=== PATIENT | male | born 1975 | race Caucasian/White ===

== ENCOUNTER 2016-10-31 04:00 | Inpatient (IN) | payer SELFPAY ==
--- NOTE | 2016-10-31 04:19 | PDOC ---
History of Present Illness - General History Source: Patient Exam Limitations: No Limitations - History of Present Illness Initial Comments: 10/31/16 04:49 The patient is a 41 year old male, with significant past medical history of obesity, HTN, who presents today complaining of SOB, diaphoresis x2 days. The patient states that he the SOB is exacerbated when laying down and sleeping. He states that he wakes up every night because he can't breathe and feels like he is choking. The patient woke up tonight because he had difficulty breathing and called the ambulance. He notes that his legs frequently feel numb. Denies cough. Denies fever, chills, nausea, vomiting. Allergies: none reported Social Hx: Tobacco use. Marijuana use. Daily alcohol use (multiple beers after work). The patient does not have a PCP. <Evonne Zimmerman - Last Filed: 10/31/16 04:49> <Denisha Nair - Last Filed: 11/01/16 05:21> - General Chief Complaint: Pain, Acute Stated Complaint: ABDOMINAL PAIN Time Seen by Provider: 10/31/16 04:11 Past History <Evonne Zimmerman - Last Filed: 10/31/16 04:49> - Psycho/Social/Smoking Cessation Hx Suicidal Ideation: No Smoking History: Unknown if ever smoked Hx Alcohol Use: No Drug/Substance Use Hx: No <Denisha Nair - Last Filed: 11/01/16 05:21> - Past Medical History Allergies/Adverse Reactions: Allergies Allergy/AdvReac Type Severity Reaction Status Date / Time No Known Allergies Allergy Verified 10/31/16 04:11 Home Medications: Ambulatory Orders NK [No Known Home Medication] 10/31/16 Review of Systems - Review of Systems Able to Perform ROS?: Yes Comments:: 10/31/16 04:49 GENERAL/CONSTITUTIONAL: +diaphoresis. No fever or chills. No weakness. HEAD, EYES, EARS, NOSE AND THROAT: No change in vision. No ear pain or discharge. No sore throat. CARDIOVASCULAR: No chest pain. RESPIRATORY: +SOB. No cough, wheezing, or hemoptysis. GASTROINTESTINAL: No nausea, vomiting, diarrhea or constipation. GENITOURINARY: No dysuria, frequency, or change in urination. MUSCULOSKELETAL: No joint or muscle swelling or pain. No neck or back pain. SKIN: No rash NEUROLOGIC: No headache, vertigo, loss of consciousness, or change in strength/ sensation. ENDOCRINE: No increased thirst. No abnormal weight change. HEMATOLOGIC/LYMPHATIC: No anemia, easy bleeding, or history of blood clots. ALLERGIC/IMMUNOLOGIC: No hives or skin allergy. <JaniceciciEvonne - Last Filed: 10/31/16 04:49> *Physical Exam - Vital Signs Last Vital Signs Temp Pulse Resp BP Pulse Ox 122 H 22 144/90 91 L 10/31/16 04:12 10/31/16 04:12 10/31/16 04:12 10/31/16 04:12 - Physical Exam Comments: 10/31/16 04:50 GENERAL: Awake, alert, and fully oriented,extremely diaphoretic. Extremely obese. HEAD: No signs of trauma EYES: PERRLA, EOMI, sclera anicteric, conjunctiva clear ENT: Auricles normal inspection, hearing grossly normal, nares patent, oropharynx clear without exudates. Moist mucosa NECK: Normal ROM, supple, no lymphadenopathy, JVD, or masses LUNGS: +Hypoxic. Breath sounds equal, clear to auscultation bilaterally. No wheezes, and no crackles HEART: Regular rate and rhythm, normal S1 and S2, no murmurs, rubs or gallops ABDOMEN: Soft, nontender, normoactive bowel sounds. No guarding, no rebound. No masses EXTREMITIES: 3+ pitting edema bilaterally. Normal range of motion. No clubbing or cyanosis. No cords, erythema, or tenderness NEUROLOGICAL: Cranial nerves II through XII grossly intact. Normal speech, normal gait SKIN: Warm, Dry, normal turgor, no rashes or lesions noted. <JaniceciciEvonne - Last Filed: 10/31/16 04:49> - Vital Signs Last Vital Signs Temp Pulse Resp BP Pulse Ox 122 H 22 144/90 91 L 10/31/16 04:12 10/31/16 04:12 10/31/16 04:12 10/31/16 04:12 <Denisha Nair - Last Filed: 11/01/16 05:21> ED Treatment Course - LABORATORY CBC & Chemistry Diagram: 10/31/16 04:50 10/31/16 04:50 <Denisha Nair - Last Filed: 11/01/16 05:21> Medical Decision Making - Medical Decision Making 10/31/16 06:06 Pt has exrteme obesity and inability to breathe. Pt has diaphoresis that incorporates his entire body as he is in distress with his morbid obesity. EKG is NSR and lungs are clear despite cardiomegaly. Pt drinks alcohol daily - multiple beers and he smokes cigarettes and pot. States that he keeps gaining weight. He has swelling of his legs and will require DVT ruleout. He needs thyroid testing. He needs BiPAP to breathe easily Pt will need med surg admission. He has not been to the doctor in years, so he will be admitted to the hospitalist for further workup. 11/01/16 05:20 Pt signed out to day attending, who will endorse to the day hospitalist, as the night hospitalist didn't take the patient, as they are busy. <Denisha Nair - Last Filed: 11/01/16 05:21> *DC/Admit/Observation/Transfer - Attestations Scribe Attestion: 10/31/16 04:51 Documentation prepared by RACHEL Villa, acting as medical observer for Denisha Nair MD. <Evonne Zimmerman - Last Filed: 10/31/16 04:49> - Discharge Dispostion Admit: Yes <Denisha Nair - Last Filed: 11/01/16 05:21> Diagnosis at time of Disposition: Respiratory distress, Diaphoresis, Obesities, morbid, Sleep apnea, Alcohol dependence - Discharge Dispostion Condition at time of disposition: Guarded
[2016-10-31 05:14] LABS: BASOPHIL 0.8 % (0-2.0); EOSINOPHIL 2.2 % (0-4.5); MCH 32.9 pg (25.7-33.7); MCHC 36.8 g/dl (32.0-35.9); MEAN CELL VOLUME 89.5 fl (80-96); MEAN PLT VOLUME 9.8 fl (7.5-11.1); NEUTROPHILS 69.8 % (42.8-82.8); PLATELET COUNT 212 K/MM3 (134-434); RDW 13.9 % (11.9-15.9); WHITE BLOOD COUNT 6.7 K/mm3 (4.0-10.0)
[2016-10-31] MEDS ORDERED: FUROSEMIDE 40 MG/4 ML INJECTABLE VIAL ONE (05:15)
[2016-10-31 05:37] LABS: ALBUMIN 3.8 g/dl (3.4-5.0); ANION GAP 6 (8-16); BILIRUBIN,TOTAL 0.7 mg/dL (0.2-1.0); CO2 35 mmol/L (21-32)
[2016-10-31 05:55] LABS: GLUCOSE,RANDOM 187 mg/dL (74-106)
[2016-10-31 05:56] LABS: CREATININE 1.1 mg/dL (0.7-1.3)
[2016-10-31 05:57] LABS: ALK PHOS 74 U/L (45-117); CALCIUM 7.8 mg/dL (8.5-10.1); TOT PROT 7.6 g/dl (6.4-8.2)
[2016-10-31 06:00] LABS: TROPONIN I < 0.02 ng/ml (0.00-0.05)
[2016-10-31 06:29] LABS: SGOT/AST 85 U/L (15-37); SGPT/ALT 120 U/L (12-78)
--- NOTE | 2016-10-31 08:38 | HP ---
CHIEF COMPLAINT: " Left upper quadrant pain and sob" PCP: No PCP (Hasn't seen any physician since 10 years) HISTORY OF PRESENT ILLNESS: Patient is a 41 year old male with past medical history of Morbid obesity presented to the ED via EMS with the chief complaints of Left upper quadrant pain x 2 days. As per the patient, he was apparently well until 2 days ago when he started having left upper quadrant pain, ripping in nature, 8/10 in intensity , non radiating, not associated with nausea but one episode of vomiting. Vomitus was non bloody, non bilious, non projectile. Abdominal pain was unbearable, he felt something ripping out from the the LUQ, hence called 911 immediately and came here. Patient also reports to have dry cough, on /off since 4 years. Has shortness of breath on/off limiting him to walk beyond a block, needs to take rest after which he is able to walk. Has a h/o PND and orthopnea, chokes at night, has to wake up every hour because of shortness of breath, snores at night. After he gets up in the morning, gets very tired, feels sleepy during the day, feels sleepy while driving, doesn't get morning headaches. He reports that he has been trying to loose weight, tried by changing the diet but feels he has been gaining weight over the past years. Patient says that he has been told by his friends that he may have sleep apnea and Hypertension but hasn't visited a physician since 10 years. Denies chest pain, palpitation, headache, dizziness, fever, chills, rigors or sweating. No h/o travel, no h/o immobilization. Bowel/Bladder habit normal. Sleep-disturbed. Appetite normal. ER course was notable for: (1) Afebrile, Hypertensive (144/90mmHg), Hypoxia 91 % in RA (2) CXR- Bibasilar changes, blunting of the right angle (3) IV Lasix 80mg Daily; CPAP Recent Travel: None . Came from [place] in 2004 PAST MEDICAL HISTORY: Morbid Obesity, thinks he has Sleep apnea and Hypertension but never been diagnosed. PAST SURGICAL HISTORY: None Social History: Smokin Pack/day since 14 years Alcohol:12 cans of beers/day since 14 years Drugs: Marijuana since 14 years, 1-2 joints/day Family History: None Allergies No Known Allergies Allergy (Verified 10/31/16 04:11) HOME MEDICATIONS: Doesn't take any medication at home. Home Medications Medication Instructions Recorded NK [No Known Home Medication] 10/31/16 REVIEW OF SYSTEMS CONSTITUTIONAL: Present: Weight gain over the past years Absent: fever, chills, diaphoresis, generalized weakness, malaise, loss of appetite, weight change HEENT: Absent: rhinorrhea, nasal congestion, throat pain, throat swelling, difficulty swallowing, mouth swelling, ear pain, eye pain, visual changes CARDIOVASCULAR: Absent: chest pain, syncope, palpitations, irregular heart rate, lightheadedness , peripheral edema RESPIRATORY: Present: cough, shortness of breath, dyspnea with exertion, orthopnea, Absent: wheezing, stridor, hemoptysis GASTROINTESTINAL: Present: abdominal pain,vomiting, Absent: abdominal distension, nausea, diarrhea, constipation, melena, hematochezia GENITOURINARY: Absent: dysuria, frequency, urgency, hesitancy, hematuria, flank pain, genital pain MUSCULOSKELETAL: Absent: myalgia, arthralgia, joint swelling, back pain, neck pain SKIN: Absent: rash, itching, pallor HEMATOLOGIC/IMMUNOLOGIC: Absent: easy bleeding, easy bruising, lymphadenopathy, frequent infections ENDOCRINE: Absent: unexplained weight gain, unexplained weight loss, heat intolerance, cold intolerance NEUROLOGIC: Absent: headache, focal weakness or paresthesias, dizziness, unsteady gait, seizure, mental status changes, bladder or bowel incontinence PSYCHIATRIC: Absent: anxiety, depression, suicidal or homicidal ideation, hallucinations. PHYSICAL EXAMINATION GENERAL: Morbidly obese male, lying in bed, Awake, alert, and fully oriented, in mild respiratory distress, on CPAP. HEAD: Normal with no signs of trauma. EYES: EOM intact, no pallor or icterus. EARS, NOSE, THROAT: Ears normal. Moist mucous membranes. NECK: Short neck, Normal range of motion,Supple, no JVD. LUNGS: B/L decreased breath sounds in the bases, clear to auscultation bilaterally. No wheezes, and no crackles. No accessory muscle use. HEART: Tachycardic, Regular rate and rhythm, normal S1 and S2 without murmur. ABDOMEN: Tense + distended + (patient mentions its normally tense and distended) ,tenderness in the left upper quadrant, normoactive bowel sounds, no guarding, no rebound, no masses. No hepatomegaly or splenomegaly. MUSCULOSKELETAL: Normal range of motion at all joints. No bony deformities or tenderness. No CVA tenderness. UPPER EXTREMITIES: 2+ pulses, warm, well-perfused. No cyanosis. No clubbing. No peripheral edema. LOWER EXTREMITIES: 2+ pulses, warm, well-perfused. No calf tenderness. No peripheral edema. NEUROLOGICAL: No facial droop, bulk/tone-normal, power- 5/5 in all extremities , reflexes-intact, Cranial nerves II-XII intact. Normal speech. Normal gait. PSYCHIATRIC: Cooperative. Good eye contact. Appropriate mood and affect. SKIN: Warm, dry, normal turgor, no rashes or lesions noted, normal capillary refill. Chest x-ray 10/31/2016: AP and lateral views reveal degenerative changes with wedging, clear lungs, large heart, unfolded aorta and normal rosemary. There may be some minimal atelectasis at the left costophrenic angle. A discrete infiltrate is not seen. There is slight blunting of the right angle. Soft tissues appear prominent. Correlation recommended. Impression: Basilar changes. ASSESSMENT/PLAN: Patient is a 41 year old male with past medical history of Morbid obesity presented to the ED via EMS with the chief complaints of Left upper quadrant pain x 2 days and SOB admitted for evaluation of shortness of breath and left upper quadrant pain # Acute SOB/cough -rule out Pulmonary Embolism C/O sob at rest and exertion,Left Upper Quadrant abd pain, EKG-Sinus tachycardia; Morbidly obese Wells score for PE- 6 ABG: Hypoxia,respiratory acidosis with metabolic alkalosis CTPA ordered Ulikely Pneumonia- Afebrile, lungs clear on auscultation, no leukocytosis, CXR- Blunting of right angle, basilar changes, will Do CT chest anyway Admitted in Med-Surg, will transfere to tele if clinical condition worsens Unlikely ACS- Troponin-negative, will trend Echo ordered for aM Pulmonary consult # Left upper Abdominal pain with vomiting vs Acute Gastritis vs GERD Rule out Pancreatitis-Given the h/o alcohol intake since 14 years; Chronic dry cough-could be due to GERD amylase pending; lipase 187 Lipid panel-High TG~800 CT abdomen with IV/PO contrast ordered Avoid hepatotoxic drugs Protonix 40mg Daily # ? 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 Schroeder consult # Elevated Liver Enzymes likey due to Alcohol/NAFLD/WHEELER R/O Viral hepatitis Viral hepatitis panel ordered Avoid hepatotoxic drugs CT abdomen/pelvis pending # Newly diagnosed Hyperlipidemia T; T. Cholesterol 260; LDL 113; HDL 41 Gemfibrozil 600mg PO BID, will monitor CK Fish oil 2gm PO BID Low Pressure Boiler Operator consult requested. # Mild Rhabdomyolysis CK- 1118; No h.o recent fall, no recent drug use. Continue IV Fluids # Prediabetic [id number] Diet and exercise counseling # Morbidly Obese BMI- 50.9 Diet and weight counseling Dr. Schroeder consult request # Substance abuse Smoking, marijuana and alcohol cessation counseling Nicotine patch ordered Watch for alcohol withdrawal symptoms. Urine toxicology ordered. # FEN IV NS @ 83mls/hr Electrolytes -normal, to be repeated in am Fat/Carb/Chol controlled diet # Prophylaxis For DVT- on Heparin 5000 sq TID For GI- Not indicated # Code Status- Full Code # Dispo: Admitted in Med-Surg. Duration of stay unknown. Illness, Investigation and Plan of care explained to the patient. He verbalized understanding. Case discussed with Dr. York Visit type - Emergency Visit Emergency Visit: Yes ED Registration Date: 10/31/16 Care time: The patient presented to the Emergency Department on the above date and was hospitalized for further evaluation of their emergent condition. - New Patient This patient is new to me today: Yes Date on this admission: 10/31/16 - Critical Care Critical Care patient: No
[2016-10-31 08:42] LABS: ALLENS TEST POSITIVE; ART PUNCT SITE RIGHT RADIAL; ARTERIAL BLD GAS O2 SATURATION 90.6 % (90-98.9); ARTERIAL BLOOD GAS HCO3 28.9 meq/L (22-26)
[2016-10-31 08:43] LABS: ARTERIAL BLOOD GAS PO2 67.3 mmHg (80-100); ARTERIAL BLOOD GAS pH 7.33 (7.35-7.45); LPM/O2% 21%; PT. ON O2? NO; TYPE OF O2 ROOM AIR
[2016-10-31] MEDS: SODIUM CHLORIDE 1,000 ML IV SCH ×2 (09:44→22:02)
[2016-10-31] MEDS: FUROSEMIDE 40 MG/4 ML INJECTABLE VIAL IVPB SCH (09:49)
[2016-10-31] MEDS: HEPARIN NA (PORCINE) 5,000 UNITS/ML 1ML VIAL SQ SCH ×3 (09:52→22:00)
[2016-10-31] MEDS: NICOTINE 14 MG/24 HOURS TOPICAL PATCH TD SCH (09:54)
[2016-10-31] MEDS ORDERED: ALBUTEROL SO4 0.083% IH SOL 2.5 MG/3 ML VIAL.NEB. NEB PRN (09:56)
[2016-10-31 10:04] LABS: PHOSPHOROUS 6.1 mg/dL (2.5-4.9)
[2016-10-31 10:06] LABS: MAGNESIUM 2.6 mg/dL (1.8-2.4)
[2016-10-31 10:13] LABS: CHOLESTEROL 260 mg/dL (50-200); LDL CHOLESTEROL (ONLY SJRH) 113 mg/dL (5-100)
[2016-10-31 10:42] LABS: AMYLASE 46 U/L (25-115)
[2016-10-31 10:43] LABS: TROPONIN I < 0.02 ng/ml (0.00-0.05)
--- NOTE | 2016-10-31 11:12 | CON.PULM ---
Consult Consult Specialty:: PULMONARY Referred by:: Hospitalist Reason for Consultation:: sleep apnea - History of Present Illness Chief Complaint: shortness of breath History of Present Illness: 41yo male with h/o HTN, morbid obesity who was admitted with shortness of breath and diaphoresis. States he is a loud snorer and has been told of witnessed apneas. He wakes up multiple times throughout the night gasping for breaths and choking. 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 He is a 1 PPD smoker as well. - History Source History Provided By: Patient, Medical Record Limitations to Obtaining History: No Limitations - Past Medical History Cardio/Vascular: Yes: HTN - Alcohol/Substance Use Hx Alcohol Use: No - Smoking History Smoking history: Unknown if ever smoked Home Medications - Allergies Allergies/Adverse Reactions: Allergies Allergy/AdvReac Type Severity Reaction Status Date / Time No Known Allergies Allergy Verified 10/31/16 04:11 - Home Medications Home Medications: Ambulatory Orders NK [No Known Home Medication] 10/31/16 Review of Systems - Review of Systems Constitutional: denies: Chills, Fever Eyes: denies: Recent Change in Vision HENT: denies: Nasal Congestion, Throat Pain Neck: denies: Stiffness, Tenderness Cardiovascular: reports: Shortness of Breath. denies: Chest Pain Respiratory: denies: Cough, Hemoptysis, Wheezing Gastrointestinal: denies: Abdominal Pain, Nausea, Vomiting Genitourinary: denies: Dysuria, Hematuria Neurological: reports: Headache. denies: Dizziness Endocrine: denies: Unexplained Weight Gain, Unexplained Weight Loss Physical Exam Vital Sings: Vital Signs Temperature Pulse Rate 122 H 10/31/16 04:12 Respiratory Rate 22 10/31/16 04:12 Blood Pressure 144/90 10/31/16 04:12 O2 Sat by Pulse Oximetry (%) 98 10/31/16 10:04 Constitutional: Yes: Calm, Other (falls asleep easily) Eyes: Yes: Conjunctiva Clear, EOM Intact HENT: Yes: Atraumatic, Normocephalic Neck: Yes: Supple, Trachea Midline Cardiovascular: Yes: Regular Rate and Rhythm Respiratory: Yes: Regular, Diminished (distant breath sounds) ...Clubbing: No Gastrointestinal: Yes: Normal Bowel Sounds, Soft, Abdomen, Obese. No: Tenderness Edema: Yes (trace) Labs: ABG Results ABG pH 7.33 (7.35-7.45) L 10/31/16 08:39 ABG pCO2 at Pt Temp 56.9 mmHg (35-45) H 10/31/16 08:39 ABG pO2 at Pt Temp 67.3 mmHg (80-100) L 10/31/16 08:39 ABG HCO3 28.9 meq/L (22-26) H 10/31/16 08:39 ABG O2 Sat (Measured) 90.6 % (90-98.9) 10/31/16 08:39 ABG O2 Content 18.8 % vol (15-22) 10/31/16 08:39 ABG Base Excess 2.0 meq/l (-2-2) 10/31/16 08:39 Imaging - Results Chest X-ray: Report Reviewed, Image Reviewed (poor film, ?basilar atelectasis) Problem List - Problems (1) Acute and chronic respiratory failure with hypercapnia Code(s): J96.22 - ACUTE AND CHRONIC RESPIRATORY FAILURE WITH HYPERCAPNIA (2) Sleep apnea Code(s): G47.30 - SLEEP APNEA, UNSPECIFIED (3) Obesities, morbid Code(s): E66.01 - MORBID (SEVERE) OBESITY DUE TO EXCESS CALORIES (4) Smoker Code(s): F17.200 - NICOTINE DEPENDENCE, UNSPECIFIED, UNCOMPLICATED Assessment/Plan Acute on Chronic Hypercapneic Respiratory failure Likely Obstructive Sleep Apnea/Obesity Hypoventilation Syndrome Morbid Obesity Smoker - adjusted BiPAP settings to 12/8 with 40% FiO2 - taper FiO2 to maintain SpO2 >90% - will need sleep study as outpt and PAP device - smoking cessation, weight loss - DVT prophylaxis Thank you for this consult Jesus Duran MD
[2016-10-31 12:47] LABS: URINE MARIJUANA THC POSITIVE ng/ml (CUTOFF=50)
[2016-10-31 14:44] VITALS: BMI 46.3
[2016-10-31] MEDS ORDERED: PNEUMOC 13-VAL CONJ-DIP CRM/PF 0.5 ML DISP.SYRIN IM ONE (14:51)
--- NOTE | 2016-10-31 17:05 | PN ---
Teaching Attending Note Name of Resident: Yaa Martínez ATTENDING PHYSICIAN STATEMENT I saw and evaluated the patient. I reviewed the resident's note and discussed the case with the resident. I agree with the resident's findings and plan as documented. SUBJECTIVE: RAMOS with hypoxia OBJECTIVE: Vital Signs Temperature 99.2 F 10/31/16 13:29 Pulse Rate 116 H 10/31/16 13:29 Respiratory Rate 21 10/31/16 13:29 Blood Pressure 139/88 10/31/16 13:29 O2 Sat by Pulse Oximetry (%) 97 10/31/16 14:49 CBCD WBC 6.7 K/mm3 (4.0-10.0) 10/31/16 04:50 RBC 4.67 M/mm3 (4.00-5.60) 10/31/16 04:50 Hgb 15.4 GM/dL (11.7-16.9) 10/31/16 04:50 Hct 41.8 % (35.4-49) 10/31/16 04:50 MCV 89.5 fl (80-96) 10/31/16 04:50 MCHC 36.8 g/dl (32.0-35.9) H 10/31/16 04:50 RDW 13.9 % (11.9-15.9) 10/31/16 04:50 Plt Count 212 K/MM3 (134-434) 10/31/16 04:50 MPV 9.8 fl (7.5-11.1) 10/31/16 04:50 CMP Sodium 137 mmol/L (136-145) 10/31/16 04:50 Potassium 5.1 mmol/L (3.5-5.1) 10/31/16 04:50 Chloride 96 mmol/L (98-107) L 10/31/16 04:50 Carbon Dioxide 35 mmol/L (21-32) H 10/31/16 04:50 Anion Gap 6 (8-16) L 10/31/16 04:50 BUN 24 mg/dL (7-18) H 10/31/16 04:50 Creatinine 1.1 mg/dL (0.7-1.3) 10/31/16 04:50 Creat Clearance w eGFR > 60 (>60) 10/31/16 04:50 Random Glucose 187 mg/dL (74-106) H 10/31/16 04:50 Calcium 7.8 mg/dL (8.5-10.1) L 10/31/16 04:50 Total Bilirubin 0.7 mg/dL (0.2-1.0) 10/31/16 04:50 AST 85 U/L (15-37) H 10/31/16 04:50 ALT 120 U/L (12-78) H 10/31/16 04:50 Alkaline Phosphatase 74 U/L (45-117) 10/31/16 04:50 Total Protein 7.6 g/dl (6.4-8.2) 10/31/16 04:50 Albumin 3.8 g/dl (3.4-5.0) 10/31/16 04:50 CARDIAC ENZYMES Creatine Kinase 1118 IU/L (39-308) H 10/31/16 04:50 Troponin I < 0.02 ng/ml (0.00-0.05) 10/31/16 09:20 Current Medications Generic Name Dose Route Start Last Admin Trade Name Chelsea PRN Reason Stop Dose Admin Albuterol Sulfate 1 amp 10/31/16 09:56 Ventolin 0.083% Nebulizer Soln - NEB Q6H PRN SHORT OF BREATH/WHEEZING Furosemide 80 mg 10/31/16 10:00 10/31/16 09:49 Lasix Injection - IVPB 80 mg DAILY JUAN Administration Gemfibrozil 600 mg 10/31/16 16:30 Lopid - PO BID@0700,1630 JUAN Heparin Sodium (Porcine) 5,000 unit 10/31/16 09:00 10/31/16 15:31 Heparin - SQ 5,000 unit TID JUAN Administration Sodium Chloride 1,000 mls @ 83 mls/hr 10/31/16 09:30 10/31/16 09:44 Normal Saline - IV 83 mls/hr ASDIR JUAN Administration Nicotine 14 mg 10/31/16 10:00 10/31/16 09:54 Nicoderm Patch - TD 14 mg DAILY JUAN Administration Qardv-2-Szyj Ethyl Esters 2 gm 10/31/16 22:00 Lovaza - PO BID JUAN Home Medications Medication Instructions Recorded NK [No Known Home Medication] 10/31/16 Pe: per resident's note Morbid obesity ASSESSMENT AND PLAN: Patient is a 41 year old male with past medical history of Morbid obesity presented to the ED via EMS with the chief complaints of Left upper quadrant pain x 2 days and SOB admitted for evaluation of shortness of breath and left upper quadrant pain # Acute SOB due to Obesity Hypoventilation Syndrome/ sleep apnea rule out Pulmonary Embolism. # Abdominal pain r/o Pancreatitis-Given the h/o alcohol intake since 14 years; amylase 64; lipase 187, Elevated liver enzymes CT abdomen with IV/PO contrast ordered, LFT ordered follow the levels , with lipid profile T; T. Cholesterol 260; LDL 113; HDL 41 # Hyperlipidemia; Cannot give Lipitor at this time since elevated CPK total level, will worsen ; T; T. Cholesterol 260; LDL 113; HDL 41, Gemfibrozil 600mg PO BID ; Fish oil 2gm PO BID ; Geophysical Laboratory Director consult requested. # ELevated CPK with Acute Rhabdomyelis ;on IVF with CK- 1118 trend the level ; Continue IV Fluids. Ua for hemoglobin # Prediabetic ;[id number]; Diet and exercise counseling Ct abd/pelvis is pending # Morbidly Obese ; BMI 50.9 ;Diet and weight counseling ;further management as an outpatient # Substance abuse ;Smoking, marijuana and alcohol cessation counseling; Nicotine patch ordered # DVT Px : Heparin
[2016-10-31] MEDS: GEMFIBROZIL 600 MG TABLET (FP) PO SCH (17:38)
[2016-10-31] MEDS: OMEGA-3 ACID ETHYL ESTERS (FATTY-ACIDS) 1 GM CAPSULE (FP) PO SCH (22:02)
[2016-10-31] MEDS ORDERED: ACETAMINOPHEN 325 MG TABLET (FP) PO ONE (22:35)
[2016-11-01] MEDS ORDERED: IBUPROFEN 400 MG TABLET (FP) PO ONE (05:06)
[2016-11-01] MEDS: HEPARIN NA (PORCINE) 5,000 UNITS/ML 1ML VIAL SQ SCH ×3 (06:42→21:29)
[2016-11-01] MEDS: GEMFIBROZIL 600 MG TABLET (FP) PO SCH ×2 (06:44→16:09)
[2016-11-01 07:57] LABS: BASOPHIL 0.4 % (0-2.0); EOSINOPHIL 1.3 % (0-4.5); MCH 30.3 pg (25.7-33.7); MCHC 33.7 g/dl (32.0-35.9); MEAN PLT VOLUME 9.4 fl (7.5-11.1); NEUTROPHILS 79.4 % (42.8-82.8); PLATELET COUNT 192 K/MM3 (134-434); RDW 14.1 % (11.9-15.9); WHITE BLOOD COUNT 6.1 K/mm3 (4.0-10.0)
[2016-11-01 08:30] LABS: ALBUMIN 3.9 g/dl (3.4-5.0); ANION GAP 6 (8-16); CALCIUM 8.6 mg/dL (8.5-10.1); CO2 35 mmol/L (21-32); GLUCOSE,RANDOM 116 mg/dL (74-106)
[2016-11-01 08:34] LABS: ALK PHOS 65 U/L (45-117); BILIRUBIN,TOTAL 0.6 mg/dL (0.2-1.0); CREATININE 0.9 mg/dL (0.7-1.3); SGOT/AST 41 U/L (15-37); SGPT/ALT 89 U/L (12-78); TOT PROT 7.3 g/dl (6.4-8.2)
[2016-11-01] MEDS: SODIUM CHLORIDE 1,000 ML IV SCH ×2 (09:30→16:10)
--- NOTE | 2016-11-01 10:40 | EKG ---
Test Reason : Blood Pressure : / mmHG Vent. Rate : 113 BPM Atrial Rate : 113 BPM P-R Int : 144 ms QRS Dur : 098 ms QT Int : 340 ms P-R-T Axes : 047 064 062 degrees QTc Int : 466 ms SINUS TACHYCARDIA INCOMPLETE RIGHT BUNDLE BRANCH BLOCK BORDERLINE ECG NO PREVIOUS ECGS AVAILABLE Confirmed by DANIEL THIBODEAUX MD ([id number]) on 11/01/2016 10:40:07 AM Referred By: Confirmed By:DANIEL THIBODEAUX MD
--- NOTE | 2016-11-01 11:20 | CONSULT ---
Consult Consult Specialty:: Bariatric surgery Reason for Consultation:: Morbid obesity - History of Present Illness History of Present Illness: 41 male presented to the ER for LUQ pain and shortness of breath CT A/P showed fatty liver; no other findings Consult requested for bariatric evaluation - History Source History Provided By: Patient Limitations to Obtaining History: No Limitations - Past Medical History Cardio/Vascular: Yes: HTN - Alcohol/Substance Use Hx Alcohol Use: No - Smoking History Smoking history: Unknown if ever smoked Have you smoked in the past 12 months: Yes Aproximately how many cigarettes per day: 20 Home Medications - Allergies Allergies/Adverse Reactions: Allergies Allergy/AdvReac Type Severity Reaction Status Date / Time No Known Allergies Allergy Verified 10/31/16 04:11 - Home Medications Home Medications: Ambulatory Orders NK [No Known Home Medication] 10/31/16 Family Disease History - Family Disease History Family History: Denies Review of Systems - Review of Systems Constitutional: denies: Chills, Fever Neck: reports: No Symptoms Cardiovascular: denies: Chest Pain Respiratory: reports: SOB Gastrointestinal: reports: Abdominal Pain Genitourinary: reports: No Symptoms Neurological: denies: Change in LOC Pain Intensity: 3 Physical Exam Vital Signs: Vital Signs Temperature 98.1 F 11/01/16 01:00 Pulse Rate 119 H 11/01/16 01:00 Respiratory Rate 18 11/01/16 01:00 Blood Pressure 144/80 11/01/16 01:00 O2 Sat by Pulse Oximetry (%) 96 11/01/16 10:00 Constitutional: Yes: Calm HENT: Yes: WNL Neck: Yes: Supple Cardiovascular: Yes: Regular Rate and Rhythm Respiratory: Yes: Regular Gastrointestinal: Yes: Soft, Abdomen, Obese. No: Tenderness, Rebound Neurological: Yes: Alert, Oriented Labs: CBC, BMP 11/01/16 06:10 11/01/16 06:10 Imaging - Results Cat Scan: Report Reviewed, Image Reviewed Problem List - Problems (1) Respiratory distress Code(s): R06.00 - DYSPNEA, UNSPECIFIED (2) Morbid obesity due to excess calories Code(s): E66.01 - MORBID (SEVERE) OBESITY DUE TO EXCESS CALORIES Assessment/Plan Morbid obesity Gave office number for further discussion of options States that he is interested and will call [phone] Thank you
[2016-11-01] MEDS: NICOTINE 14 MG/24 HOURS TOPICAL PATCH TD SCH (11:21)
[2016-11-01] MEDS: OMEGA-3 ACID ETHYL ESTERS (FATTY-ACIDS) 1 GM CAPSULE (FP) PO SCH ×2 (11:23→21:28)
[2016-11-01] MEDS: PANTOPRAZOLE 40 MG TABLET (FP) PO SCH (11:23)
[2016-11-01] MEDS: FUROSEMIDE 40 MG/4 ML INJECTABLE VIAL IVPB SCH (12:08)
--- NOTE | 2016-11-01 12:14 | PN ---
Progress Note, Physician History of Present Illness: pulmonary alert,feeling better,slept better last night - Current Medication List Current Medications: Active Medications Albuterol Sulfate (Ventolin 0.083% Nebulizer Soln -) 1 amp NEB Q6H PRN PRN Reason: SHORT OF BREATH/WHEEZING Furosemide (Lasix Injection -) 80 mg IVPB DAILY [facility] Last Admin: 10/31/16 09:49 Dose: 80 mg Gemfibrozil (Lopid -) 600 mg PO BID@0700,1630 [facility] Last Admin: 11/01/16 06:44 Dose: 600 mg Heparin Sodium (Porcine) (Heparin -) 5,000 unit SQ TID [facility] Last Admin: 11/01/16 06:42 Dose: 5,000 unit Sodium Chloride (Normal Saline -) 1,000 mls @ 83 mls/hr IV ASDIR [facility] Last Admin: 10/31/16 22:02 Dose: 83 mls/hr Nicotine (Nicoderm Patch -) 14 mg TD DAILY [facility] Last Admin: 11/01/16 11:21 Dose: 14 mg Tntea-4-Auqx Ethyl Esters (Lovaza -) 2 gm PO BID [facility] Last Admin: 11/01/16 11:23 Dose: 2 gm Pantoprazole Sodium (Protonix -) 40 mg PO DAILY [facility] Last Admin: 11/01/16 11:23 Dose: 40 mg - Objective Vital Signs: Vital Signs Temperature 99 F 11/01/16 10:35 Pulse Rate 110 H 11/01/16 10:35 Respiratory Rate 18 11/01/16 10:35 Blood Pressure 136/82 11/01/16 10:35 O2 Sat by Pulse Oximetry (%) 96 11/01/16 10:00 Constitutional: Yes: Calm, Obese Eyes: Yes: WNL HENT: Yes: WNL Neck: Yes: WNL Cardiovascular: Yes: Regular Rate and Rhythm, S1, S2 Respiratory: Yes: Diminished Gastrointestinal: Yes: Normal Bowel Sounds, Soft Extremities: Yes: WNL Edema: No Labs: CBC, BMP 11/01/16 06:10 11/01/16 06:10 Assessment/Plan Problem List - Problems (1) Acute and chronic respiratory failure with hypercapnia Code(s): J96.22 - ACUTE AND CHRONIC RESPIRATORY FAILURE WITH HYPERCAPNIA (2) Sleep apnea Code(s): G47.30 - SLEEP APNEA, UNSPECIFIED (3) Obesities, morbid Code(s): E66.01 - MORBID (SEVERE) OBESITY DUE TO EXCESS CALORIES (4) Smoker Code(s): F17.200 - NICOTINE DEPENDENCE, UNSPECIFIED, UNCOMPLICATED Assessment/Plan Acute on Chronic Hypercapneic Respiratory failure Likely Obstructive Sleep Apnea/Obesity Hypoventilation Syndrome Morbid Obesity Smoker - BiPAP - taper FiO2 to maintain SpO2 >90% - sleep study as outpt and PAP device - smoking cessation, weight loss - DVT prophylaxis - check o2 nsat at rest and post exercise on ra - check echo DR SUE
[2016-11-01] MEDS: THIAMINE HCL 100 MG TABLET (FP) PO SCH (14:28)
[2016-11-01] MEDS: FOLIC ACID 1 MG TABLET (FP) PO SCH (14:28)
--- NOTE | 2016-11-01 16:39 | PN ---
Physical Exam: SUBJECTIVE: Patient seen and examined at bedside. Pt much improved since admission. No acute events overnight. Pt complains of left upper abdominal pain and tingling in his left fingers. No other complaints. Pt denies headache, cp, sob, abd pain, nausea, vomiting, diarrhea, dysuria. OBJECTIVE: Vital Signs Period Temp Pulse Resp BP Sys/Marks Pulse Ox Last 24 Hr 98.1 F-99 F 108-119 18-20 136-151/78-133 94-96 GENERAL: The patient is awake, alert, and fully oriented, in no acute distress. HEAD: Normal with no signs of trauma. EYES: PERRL, extraocular movements intact, sclera anicteric, conjunctiva clear. No ptosis. ENT: Ears normal, nares patent, oropharynx clear without exudates, moist mucous membranes. NECK: Trachea midline, full range of motion, supple. LUNGS: Breath sounds equal, clear to auscultation bilaterally, no wheezes, no crackles, no accessory muscle use. HEART: Regular rate and rhythm, S1, S2 without murmur, rub or gallop. ABDOMEN: Soft, nontender, nondistended, normoactive bowel sounds, no guarding, no rebound, no hepatosplenomegaly, no masses. EXTREMITIES: 2+ pulses, warm, well-perfused, no edema. NEUROLOGICAL: Cranial nerves II through XII grossly intact. Normal speech, gait not observed. PSYCH: Normal mood, normal affect. SKIN: Warm, dry, normal turgor, no rashes or lesions noted Laboratory Results - last 24 hr 11/01/16 11/01/16 11/01/16 06:10 06:10 06:10 WBC 6.1 RBC 4.70 Hgb 14.3 Hct 42.4 MCV 90.0 MCH 30.3 MCHC 33.7 RDW 14.1 Plt Count 192 MPV 9.4 Neutrophils % 79.4 Lymphocytes % 10.8 D Monocytes % 8.1 Eosinophils % 1.3 Basophils % 0.4 Sodium 137 Potassium 4.5 Chloride 96 L Carbon Dioxide 35 H Anion Gap 6 L BUN 19 H D Creatinine 0.9 Creat Clearance w eGFR > 60 Random Glucose 116 H D Calcium 8.6 Total Bilirubin 0.6 AST 41 H D ALT 89 H D Alkaline Phosphatase 65 Creatine Kinase 604 H D Creatine Kinase Index 1.1 CK-MB (CK-2) 6.516 H CK-MB (CK-2) Rel Index Cancelled Total Protein 7.3 Albumin 3.9 11/01/16 09:10 WBC RBC Hgb Hct MCV MCH MCHC RDW Plt Count MPV Neutrophils % Lymphocytes % Monocytes % Eosinophils % Basophils % Sodium Potassium Chloride Carbon Dioxide Anion Gap BUN Creatinine Creat Clearance w eGFR Random Glucose Calcium Total Bilirubin AST ALT Alkaline Phosphatase Creatine Kinase Cancelled Creatine Kinase Index CK-MB (CK-2) CK-MB (CK-2) Rel Index Total Protein Albumin Active Medications Generic Name Dose Route Start Last Admin Trade Name Freq PRN Reason Stop Dose Admin Albuterol Sulfate 1 amp 10/31/16 09:56 Ventolin 0.083% Nebulizer Soln - NEB Q6H PRN SHORT OF BREATH/WHEEZING Folic Acid 1 mg 11/01/16 13:15 11/01/16 14:28 Folic Acid - PO 1 mg DAILY JUAN Administration Gemfibrozil 600 mg 10/31/16 16:30 11/01/16 16:09 Lopid - PO 600 mg BID@0700,1630 JUAN Administration Heparin Sodium (Porcine) 5,000 unit 10/31/16 09:00 11/01/16 14:28 Heparin - SQ 5,000 unit TID JUAN Administration Sodium Chloride 1,000 mls @ 83 mls/hr 10/31/16 09:30 11/01/16 16:10 Normal Saline - IV 83 mls/hr ASDIR JUAN Administration Multivitamins 1 each 11/01/16 13:15 Total B With C - PO DAILY JUAN Nicotine 14 mg 10/31/16 10:00 11/01/16 11:21 Nicoderm Patch - TD 14 mg DAILY JUAN Administration Gqbci-7-Ylim Ethyl Esters 2 gm 10/31/16 22:00 11/01/16 11:23 Lovaza - PO 2 gm BID JUAN Administration Pantoprazole Sodium 40 mg 11/01/16 10:00 11/01/16 11:23 Protonix - PO 40 mg DAILY JUAN Administration Thiamine HCl 100 mg 11/01/16 13:15 11/01/16 14:28 Vitamin B1 - PO 100 mg DAILY JUAN Administration ASSESSMENT/PLAN: Patient is a 41 year old male with past medical history of Morbid obesity presented to the ED via EMS with the chief complaints of Left upper quadrant pain x 2 days and SOB admitted for evaluation of shortness of breath and left upper quadrant pain. #Acute SOB/cough -rule out Pulmonary Embolism -Pulmonology (Dr. Haines) consult appreciated. Rec BiPAP with FiO2 taper to O2sat > 90%, sleep study as out pt, smoking cessation, weight loss, checking O2sat at rest and post exercise on room air -Initially complaining of SOB at rest. Now comfortable at rest. -Initial ABG showed hypoxia, resp acidosis, metab alkalosis -CTPA showed no PE -neg for troponins -Pt breathing comfortably without BiPAP today. O2sat 97% on room air #Left upper quadrant pain: likely musculoskeletal -reproducible with patient positioning and by coughing -r/o pancreatitis: amylase 46, lipase 187 -CT abdomen showed fatty liver infiltrate. No pancreatic pathology -Protonix 40mg PO daily #? MARYBETH vs Pickwickian Obesity Hypoventilation Syndrome -history of sleepiness during the day and sleepless nights with snoring -obese -ABG: Hypoxia,respiratory acidosis with metabolic alkalosis -BiPAP -Albuterol PRN -Pulm recs sleep study as an outpt #Left finger tingling -? etiology. prior injury vs carpel tunnel vs hypothyroid vs folate/B12 defic -f/u thyroid function labs -f/u B12/folate levels # Metabolic Syndrome -Morbidly Obese; Dyslipidemia; Glucose intolerance -Counselled for diet and exercise after stablization -Warp Preparer consult -Dr. Schroeder consult # Elevated Liver Enzymes likey due to Alcohol/NAFLD/WHEELER -R/O Viral hepatitis -Viral hepatitis panel pending -Avoid hepatotoxic drugs -CT abdomen/pelvis showed fatty liver # Newly diagnosed Hyperlipidemia -T; T. Cholesterol 260; LDL 113; HDL 41 -Gemfibrozil 600mg PO BID, will monitor CK -Fish oil 2gm PO BID -Warp Preparer consult requested. # Mild Rhabdomyolysis -CK- 1118; No h.o recent fall, no recent drug use. -Continue IV Fluids # Prediabetic -UmI3k-5.1 -Diet and exercise counseling # Morbidly Obese -BMI- 50.9 -Diet and weight counseling -Dr. Schroeder consult request # Substance abuse -Smoking, marijuana and alcohol cessation counseling -Nicotine patch ordered -Watch for alcohol withdrawal symptoms. No symptoms so far. -Urine toxicology pos for marijuana # FEN -IV NS @ 83mls/hr -Electrolytes -normal, to be repeated in am -Fat/Carb/Chol controlled diet # Prophylaxis -For DVT- on Heparin 5000 sq TID -For GI- Not indicated # Code Status- Full Code # Dispo: Admitted in Med-Surg. Duration of stay unknown. Illness, Investigation and Plan of care explained to the patient. He verbalized understanding. Case discussed with Dr. York Visit type - Emergency Visit Emergency Visit: Yes ED Registration Date: 10/31/16 Care time: The patient presented to the Emergency Department on the above date and was hospitalized for further evaluation of their emergent condition. - New Patient This patient is new to me today: No - Critical Care Critical Care patient: No
[2016-11-01] MEDS: VITAMIN B COMPLEX W/C COMBO TABLET (FP) PO SCH (18:15)
--- NOTE | 2016-11-01 19:22 | PN ---
Teaching Attending Note Name of Resident: Trae Valero ATTENDING PHYSICIAN STATEMENT I saw and evaluated the patient. I reviewed the resident's note and discussed the case with the resident. I agree with the resident's findings and plan as documented. SUBJECTIVE: Patient on Bipap at night time, Low oxygenation on room air. OBJECTIVE: Vital Signs Temperature 98.5 F 11/01/16 15:58 Pulse Rate 111 H 11/01/16 15:58 Respiratory Rate 20 11/01/16 15:58 Blood Pressure 151/78 11/01/16 15:58 O2 Sat by Pulse Oximetry (%) 96 11/01/16 10:00 CBCD WBC 6.1 K/mm3 (4.0-10.0) 11/01/16 06:10 RBC 4.70 M/mm3 (4.00-5.60) 11/01/16 06:10 Hgb 14.3 GM/dL (11.7-16.9) 11/01/16 06:10 Hct 42.4 % (35.4-49) 11/01/16 06:10 MCV 90.0 fl (80-96) 11/01/16 06:10 MCHC 33.7 g/dl (32.0-35.9) 11/01/16 06:10 RDW 14.1 % (11.9-15.9) 11/01/16 06:10 Plt Count 192 K/MM3 (134-434) 11/01/16 06:10 MPV 9.4 fl (7.5-11.1) 11/01/16 06:10 CMP Sodium 137 mmol/L (136-145) 11/01/16 06:10 Potassium 4.5 mmol/L (3.5-5.1) 11/01/16 06:10 Chloride 96 mmol/L (98-107) L 11/01/16 06:10 Carbon Dioxide 35 mmol/L (21-32) H 11/01/16 06:10 Anion Gap 6 (8-16) L 11/01/16 06:10 BUN 19 mg/dL (7-18) H D 11/01/16 06:10 Creatinine 0.9 mg/dL (0.7-1.3) 11/01/16 06:10 Creat Clearance w eGFR > 60 (>60) 11/01/16 06:10 Random Glucose 116 mg/dL (74-106) H D 11/01/16 06:10 Calcium 8.6 mg/dL (8.5-10.1) 11/01/16 06:10 Total Bilirubin 0.6 mg/dL (0.2-1.0) 11/01/16 06:10 AST 41 U/L (15-37) H D 11/01/16 06:10 ALT 89 U/L (12-78) H D 11/01/16 06:10 Alkaline Phosphatase 65 U/L (45-117) 11/01/16 06:10 Total Protein 7.3 g/dl (6.4-8.2) 11/01/16 06:10 Albumin 3.9 g/dl (3.4-5.0) 11/01/16 06:10 CARDIAC ENZYMES Creatine Kinase 604 IU/L (39-308) H D 11/01/16 06:10 Troponin I < 0.02 ng/ml (0.00-0.05) 10/31/16 09:20 Current Medications Generic Name Dose Route Start Last Admin Trade Name Freq PRN Reason Stop Dose Admin Albuterol Sulfate 1 amp 10/31/16 09:56 Ventolin 0.083% Nebulizer Soln - NEB Q6H PRN SHORT OF BREATH/WHEEZING Folic Acid 1 mg 11/01/16 13:15 11/01/16 14:28 Folic Acid - PO 1 mg DAILY JUAN Administration Gemfibrozil 600 mg 10/31/16 16:30 11/01/16 16:09 Lopid - PO 600 mg BID@0700,1630 JUAN Administration Heparin Sodium (Porcine) 5,000 unit 10/31/16 09:00 11/01/16 14:28 Heparin - SQ 5,000 unit TID JUAN Administration Sodium Chloride 1,000 mls @ 83 mls/hr 10/31/16 09:30 11/01/16 16:10 Normal Saline - IV 83 mls/hr ASDIR JUAN Administration Multivitamins 1 each 11/01/16 13:15 11/01/16 18:15 Total B With C - PO 1 each DAILY JUAN Administration Nicotine 14 mg 10/31/16 10:00 11/01/16 11:21 Nicoderm Patch - TD 14 mg DAILY JUAN Administration Rmbdg-8-Lgbz Ethyl Esters 2 gm 10/31/16 22:00 07/10/17 11:23 Lovaza - PO 2 gm BID JUAN Administration Pantoprazole Sodium 40 mg 11/01/16 10:00 11/01/16 11:23 Protonix - PO 40 mg DAILY JUAN Administration Thiamine HCl 100 mg 11/01/16 13:15 11/01/16 14:28 Vitamin B1 - PO 100 mg DAILY JUAN Administration Home Medications Medication Instructions Recorded NK [No Known Home Medication] 10/31/16 Pe: per resident's note Morbid obesity ASSESSMENT AND PLAN: Patient is a 41 year old male with past medical history of Morbid obesity presented to the ED via EMS with the chief complaints of Left upper quadrant pain x 2 days and SOB admitted for evaluation of shortness of breath and left upper quadrant pain # Acute SOB continues , pre & post exercise oxygenation is 87% with exertion ordered. hypoxia is due to Obesity Hypoventilation Syndrome/ sleep apnea( Pickwickian syndrome) ; needs sleep study work up as an outpatient .CT of the chest negative for PE. # Abdominal pain with elevated LFTs , abdominal pain , Given the h/o alcohol intake since 14 years; amylase 64; lipase 187, Elevated liver enzymes, CT abdomen with IV/PO contrast ordered, positive for Fatty liver, LFT ordered follow the levels , with lipid profile T; T. Cholesterol 260; LDL 113; HDL 41 # Hyperlipidemia; Cannot give Lipitor at this time since elevated CPK total level, and elevated LFTs will worsen lipid profile ; T; T. Cholesterol 260 ; LDL 113; HDL 41, Gemfibrozil 600mg PO BID ; Fish oil 2gm PO BID ; Packing Line Worker consult requested. # ELevated CPK with Acute Rhabdomyelis ;on IVF with CK- 1118--> 600's trend the level ; Continue IV Fluids. # Prediabetic ;LxA2f-5.1; Diet and exercise counseling Ct abd/pelvis is pending # Morbidly Obese ; BMI 50.9 ;Diet and weight counseling ;further management as an outpatient # Substance abuse ;Smoking, marijuana and alcohol cessation counseling; Nicotine patch ordered # DVT Px : Heparin
[2016-11-02] MEDS: HEPARIN NA (PORCINE) 5,000 UNITS/ML 1ML VIAL SQ SCH ×3 (06:06→21:17)
[2016-11-02] MEDS: GEMFIBROZIL 600 MG TABLET (FP) PO SCH ×2 (06:06→18:25)
[2016-11-02 08:27] LABS: BASOPHIL 0.3 % (0-2.0); EOSINOPHIL 1.5 % (0-4.5); MCH 29.9 pg (25.7-33.7); MCHC 33.6 g/dl (32.0-35.9); MEAN PLT VOLUME 9.2 fl (7.5-11.1); PLATELET COUNT 180 K/MM3 (134-434); RDW 13.6 % (11.9-15.9); WHITE BLOOD COUNT 5.8 K/mm3 (4.0-10.0)
[2016-11-02 08:50] LABS: ANION GAP 6 (8-16); CALCIUM 9.1 mg/dL (8.5-10.1); CO2 33 mmol/L (21-32); CREATININE 0.9 mg/dL (0.7-1.3); GLUCOSE,RANDOM 101 mg/dL (74-106)
[2016-11-02 08:59] LABS: THYROID STIMULATING HORMONE 2.09 uIU/ml (0.358-3.74)
--- NOTE | 2016-11-02 10:50 | PN ---
Physical Exam: SUBJECTIVE: Patient seen and examined and examined at bedside. No acute events overnight. Pt slept well. No complaints at this time. Pt denies headache, cp, sob, abd pain, nausea, vomiting, diarrhea, dysuria, fever. OBJECTIVE: Vital Signs Period Temp Pulse Resp BP Sys/Marks Pulse Ox Last 24 Hr 98.1 F-98.5 F 68-115 16-22 138-156/76-93 91-91 GENERAL: obese. no resp distress. The patient is awake, alert, and fully oriented, in no acute distress. HEAD: Normal with no signs of trauma. EYES: PERRL, extraocular movements intact, sclera anicteric, conjunctiva clear. No ptosis. ENT: Ears normal, nares patent, oropharynx clear without exudates, moist mucous membranes. NECK: Trachea midline, full range of motion, supple. LUNGS: Breath sounds equal, clear to auscultation bilaterally, no wheezes, no crackles, no accessory muscle use. HEART: Regular rate and rhythm, S1, S2 without murmur, rub or gallop. ABDOMEN: Soft, nontender, nondistended, normoactive bowel sounds, no guarding, no rebound, no hepatosplenomegaly, no masses. EXTREMITIES: 2+ pulses, warm, well-perfused, no edema. NEUROLOGICAL: Cranial nerves II through XII grossly intact. Normal speech, gait not observed. PSYCH: Normal mood, normal affect. SKIN: Warm, dry, normal turgor, no rashes or lesions noted Laboratory Results - last 24 hr 11/01/16 11/01/16 11/01/16 06:10 06:10 06:10 WBC RBC Hgb Hct MCV MCH MCHC RDW Plt Count MPV Neutrophils % Lymphocytes % Monocytes % Eosinophils % Basophils % Sodium 137 Potassium 4.5 Chloride 96 L Carbon Dioxide 35 H Anion Gap 6 L BUN 19 H D Creatinine 0.9 Creat Clearance w eGFR > 60 Random Glucose 116 H D Calcium 8.6 Total Bilirubin 0.6 AST 41 H D ALT 89 H D Alkaline Phosphatase 65 Creatine Kinase 604 H D Creatine Kinase Index 1.1 CK-MB (CK-2) 6.516 H CK-MB (CK-2) Rel Index Cancelled Total Protein 7.3 Albumin 3.9 TSH Free T4 Hepatitis A IgM Ab Negative Hep Bs Antigen Negative Hep B Core IgM Ab Negative Hepatitis C Ab (EIA) <0.1 11/02/16 11/02/16 07:35 07:35 WBC 5.8 RBC 4.73 Hgb 14.1 Hct 42.1 MCV 89.0 MCH 29.9 MCHC 33.6 RDW 13.6 Plt Count 180 MPV 9.2 Neutrophils % 75.0 Lymphocytes % 14.5 D Monocytes % 8.7 Eosinophils % 1.5 Basophils % 0.3 Sodium 137 Potassium 4.1 Chloride 98 Carbon Dioxide 33 H Anion Gap 6 L BUN 20 H Creatinine 0.9 Creat Clearance w eGFR Random Glucose 101 Calcium 9.1 Total Bilirubin AST ALT Alkaline Phosphatase Creatine Kinase Creatine Kinase Index CK-MB (CK-2) CK-MB (CK-2) Rel Index Total Protein Albumin TSH 2.09 Free T4 0.80 Hepatitis A IgM Ab Hep Bs Antigen Hep B Core IgM Ab Hepatitis C Ab (EIA) Active Medications Generic Name Dose Route Start Last Admin Trade Name Freq PRN Reason Stop Dose Admin Albuterol Sulfate 1 amp 10/31/16 09:56 Ventolin 0.083% Nebulizer Soln - NEB Q6H PRN SHORT OF BREATH/WHEEZING Folic Acid 1 mg 11/01/16 13:15 11/01/16 14:28 Folic Acid - PO 1 mg DAILY JUAN Administration Gemfibrozil 600 mg 10/31/16 16:30 11/02/16 06:06 Lopid - PO 600 mg BID@0700,1630 JUAN Administration Heparin Sodium (Porcine) 5,000 unit 10/31/16 09:00 11/02/16 06:06 Heparin - SQ 5,000 unit TID JUAN Administration Sodium Chloride 1,000 mls @ 83 mls/hr 10/31/16 09:30 11/01/16 16:10 Normal Saline - IV 83 mls/hr ASDIR JUAN Administration Multivitamins 1 each 11/01/16 13:15 11/01/16 18:15 Total B With C - PO 1 each DAILY JUAN Administration Nicotine 14 mg 10/31/16 10:00 11/01/16 11:21 Nicoderm Patch - TD 14 mg DAILY JUAN Administration Tkimj-0-Wgus Ethyl Esters 2 gm 10/31/16 22:00 11/01/16 21:28 Lovaza - PO 2 gm BID JUAN Administration Pantoprazole Sodium 40 mg 11/01/16 10:00 11/01/16 11:23 Protonix - PO 40 mg DAILY JUAN Administration Thiamine HCl 100 mg 11/01/16 13:15 11/01/16 14:28 Vitamin B1 - PO 100 mg DAILY JUAN Administration ASSESSMENT/PLAN: Patient is a 41 year old male with past medical history of Morbid obesity presented to the ED via EMS with the chief complaints of Left upper quadrant pain x 2 days and SOB admitted for evaluation of shortness of breath and left upper quadrant pain. #Acute SOB/cough -rule out Pulmonary Embolism -Pulmonology (Dr. Haines) consult appreciated. Rec BiPAP with FiO2 taper to O2sat > 90%, sleep study as out pt, smoking cessation, weight loss, checking O2sat at rest and post exercise on room air -Initially complaining of SOB at rest. Now comfortable at rest. Sat 97% on room air -Initial ABG showed hypoxia, resp acidosis, metab alkalosis -CTPA showed no PE -neg for troponins -Pt breathing comfortably. O2 sat 90% on RA. Restarted 2L O2. Ordered RT pre and post exercise O2sat -Echo shows normal LV function #Left upper quadrant pain: likely musculoskeletal -reproducible with patient positioning and by coughing -r/o pancreatitis: amylase 46, lipase 187 -CT abdomen showed fatty liver infiltrate. No pancreatic pathology -Protonix 40mg PO daily #? MARYBETH vs Pickwickian Obesity Hypoventilation Syndrome -history of sleepiness during the day and sleepless nights with snoring -obese -ABG: Hypoxia,respiratory acidosis with metabolic alkalosis -BiPAP -Albuterol PRN -Pulm recs sleep study as an outpt #Left finger tingling -? etiology. prior injury vs carpel tunnel vs hypothyroid vs folate/B12 defic -f/u thyroid function labs -f/u B12/folate levels # Metabolic Syndrome -Morbidly Obese; Dyslipidemia; Glucose intolerance -Counselled for diet and exercise after stablization -Brick Shader consult -Dr. Schroeder consult # Elevated Liver Enzymes likey due to Alcohol/NAFLD/WHEELER -R/O Viral hepatitis -Viral hepatitis panel pending -Avoid hepatotoxic drugs -CT abdomen/pelvis showed fatty liver # Newly diagnosed Hyperlipidemia -T; T. Cholesterol 260; LDL 113; HDL 41 -Gemfibrozil 600mg PO BID, will monitor CK -Fish oil 2gm PO BID -Brick Shader consult requested. # Mild Rhabdomyolysis -CK- 1118; No h.o recent fall, no recent drug use. -Continue IV Fluids # Prediabetic -GrG2s-2.1 -Diet and exercise counseling # Morbidly Obese -BMI- 50.9 -Diet and weight counseling -Dr. Schroeder consult request # Substance abuse -Smoking, marijuana and alcohol cessation counseling -Nicotine patch ordered -Watch for alcohol withdrawal symptoms. No symptoms so far. -Urine toxicology pos for marijuana # FEN -IV NS @ 83mls/hr -Electrolytes -normal, to be repeated in am -Fat/Carb/Chol controlled diet # Prophylaxis -For DVT- on Heparin 5000 sq TID -For GI- Not indicated # Code Status- Full Code # Dispo: Admitted in Med-Surg. Duration of stay unknown. Illness, Investigation and Plan of care explained to the patient. He verbalized understanding. Case discussed with Dr. York Visit type - Emergency Visit Emergency Visit: No - New Patient This patient is new to me today: No - Critical Care Critical Care patient: No
[2016-11-02] MEDS: FOLIC ACID 1 MG TABLET (FP) PO SCH (11:54)
[2016-11-02] MEDS: THIAMINE HCL 100 MG TABLET (FP) PO SCH (11:54)
--- NOTE | 2016-11-02 11:54 | PN ---
Progress Note, Physician History of Present Illness: PULMONARY ALERT,FEELING BETTER,LESS DYSPNEIC, SLEEP SCREEN + SEVERE MARYBETH AHI 24.2. ECHO - PUL HTN - Current Medication List Current Medications: Active Medications Albuterol Sulfate (Ventolin 0.083% Nebulizer Soln -) 1 amp NEB Q6H PRN PRN Reason: SHORT OF BREATH/WHEEZING Folic Acid (Folic Acid -) 1 mg PO DAILY [facility] Last Admin: 11/01/16 14:28 Dose: 1 mg Gemfibrozil (Lopid -) 600 mg PO BID@0700,1630 [facility] Last Admin: 11/02/16 06:06 Dose: 600 mg Heparin Sodium (Porcine) (Heparin -) 5,000 unit SQ TID [facility] Last Admin: 11/02/16 06:06 Dose: 5,000 unit Sodium Chloride (Normal Saline -) 1,000 mls @ 83 mls/hr IV ASDIR [facility] Last Admin: 11/01/16 16:10 Dose: 83 mls/hr Multivitamins (Total B With C -) 1 each PO DAILY [facility] Last Admin: 11/01/16 18:15 Dose: 1 each Nicotine (Nicoderm Patch -) 14 mg TD DAILY [facility] Last Admin: 11/01/16 11:21 Dose: 14 mg Akzkx-3-Utrw Ethyl Esters (Lovaza -) 2 gm PO BID [facility] Last Admin: 11/01/16 21:28 Dose: 2 gm Pantoprazole Sodium (Protonix -) 40 mg PO DAILY [facility] Last Admin: 11/01/16 11:23 Dose: 40 mg Thiamine HCl (Vitamin B1 -) 100 mg PO DAILY [facility] Last Admin: 11/01/16 14:28 Dose: 100 mg - Objective Vital Signs: Vital Signs Temperature 98.1 F 11/02/16 06:00 Pulse Rate 68 11/02/16 09:05 Respiratory Rate 16 11/02/16 06:00 Blood Pressure 145/93 11/02/16 06:00 O2 Sat by Pulse Oximetry (%) 94 L 11/02/16 11:23 Constitutional: Yes: Well Nourished, Obese Eyes: Yes: WNL HENT: Yes: WNL Neck: Yes: WNL Cardiovascular: Yes: Regular Rate and Rhythm, S1, S2 Respiratory: Yes: Diminished Gastrointestinal: Yes: Normal Bowel Sounds, Soft Extremities: Yes: WNL Edema: No Labs: CBC, BMP 11/02/16 07:35 11/02/16 07:35 Assessment/Plan Problem List - Problems (1) Acute and chronic respiratory failure with hypercapnia Code(s): J96.22 - ACUTE AND CHRONIC RESPIRATORY FAILURE WITH HYPERCAPNIA (2) Sleep apnea Code(s): G47.30 - SLEEP APNEA, UNSPECIFIED (3) Obesities, morbid Code(s): E66.01 - MORBID (SEVERE) OBESITY DUE TO EXCESS CALORIES (4) Smoker Code(s): F17.200 - NICOTINE DEPENDENCE, UNSPECIFIED, UNCOMPLICATED Assessment/Plan Acute on Chronic Hypercapneic Respiratory failure Likely Obstructive Sleep Apnea/Obesity Hypoventilation Syndrome Morbid Obesity Smoker - BiPAP - taper FiO2 to maintain SpO2 >90% - sleep study as outpt and PAP device - smoking cessation, weight loss - DVT prophylaxis - check o2 sat at rest and post exercise on ra DR SUE
[2016-11-02] MEDS: VITAMIN B COMPLEX W/C COMBO TABLET (FP) PO SCH (11:55)
[2016-11-02] MEDS: OMEGA-3 ACID ETHYL ESTERS (FATTY-ACIDS) 1 GM CAPSULE (FP) PO SCH ×2 (11:55→21:17)
[2016-11-02] MEDS: NICOTINE 14 MG/24 HOURS TOPICAL PATCH TD SCH (11:55)
[2016-11-02] MEDS: PANTOPRAZOLE 40 MG TABLET (FP) PO SCH (11:55)
[2016-11-02] MEDS: SODIUM CHLORIDE 1,000 ML IV SCH (14:20)
[2016-11-02] MEDS ORDERED: SODIUM CHLORIDE 0.45% 1,000 ML IV SCH (17:00)
--- NOTE | 2016-11-02 17:34 | PN ---
Teaching Attending Note Name of Resident: Trae Valero ATTENDING PHYSICIAN STATEMENT I saw and evaluated the patient. I reviewed the resident's note and discussed the case with the resident. I agree with the resident's findings and plan as documented. SUBJECTIVE: Comfortable on oxygen but low oxygenation off oxygen. OBJECTIVE: Vital Signs Temperature 98.0 F 11/02/16 15:40 Pulse Rate 110 H 11/02/16 15:40 Respiratory Rate 18 11/02/16 15:40 Blood Pressure 154/100 11/02/16 15:40 O2 Sat by Pulse Oximetry (%) 94 L 11/02/16 16:38 CBCD WBC 5.8 K/mm3 (4.0-10.0) 11/02/16 07:35 RBC 4.73 M/mm3 (4.00-5.60) 11/02/16 07:35 Hgb 14.1 GM/dL (11.7-16.9) 11/02/16 07:35 Hct 42.1 % (35.4-49) 11/02/16 07:35 MCV 89.0 fl (80-96) 11/02/16 07:35 MCHC 33.6 g/dl (32.0-35.9) 11/02/16 07:35 RDW 13.6 % (11.9-15.9) 11/02/16 07:35 Plt Count 180 K/MM3 (134-434) 11/02/16 07:35 MPV 9.2 fl (7.5-11.1) 11/02/16 07:35 CMP Sodium 137 mmol/L (136-145) 11/02/16 07:35 Potassium 4.1 mmol/L (3.5-5.1) 11/02/16 07:35 Chloride 98 mmol/L (98-107) 11/02/16 07:35 Carbon Dioxide 33 mmol/L (21-32) H 11/02/16 07:35 Anion Gap 6 (8-16) L 11/02/16 07:35 BUN 20 mg/dL (7-18) H 11/02/16 07:35 Creatinine 0.9 mg/dL (0.7-1.3) 11/02/16 07:35 Creat Clearance w eGFR > 60 (>60) 11/01/16 06:10 Random Glucose 101 mg/dL (74-106) 11/02/16 07:35 Calcium 9.1 mg/dL (8.5-10.1) 11/02/16 07:35 Total Bilirubin 0.6 mg/dL (0.2-1.0) 11/01/16 06:10 AST 41 U/L (15-37) H D 11/01/16 06:10 ALT 89 U/L (12-78) H D 11/01/16 06:10 Alkaline Phosphatase 65 U/L (45-117) 11/01/16 06:10 Total Protein 7.3 g/dl (6.4-8.2) 11/01/16 06:10 Albumin 3.9 g/dl (3.4-5.0) 11/01/16 06:10 CARDIAC ENZYMES Creatine Kinase 538 IU/L (39-308) H 11/02/16 07:35 Troponin I < 0.02 ng/ml (0.00-0.05) 10/31/16 09:20 Home Medications Medication Instructions Recorded Nicotine Patch [Nicoderm Patch -] 14 mg TD DAILY #20 patch 11/02/16 Hepatic Panel Total Bilirubin 0.6 mg/dL (0.2-1.0) 11/01/16 06:10 AST 41 U/L (15-37) H D 11/01/16 06:10 ALT 89 U/L (12-78) H D 11/01/16 06:10 Alkaline Phosphatase 65 U/L (45-117) 11/01/16 06:10 Albumin 3.9 g/dl (3.4-5.0) 11/01/16 06:10 PE: per resident ASSESSMENT AND PLAN: Patient is a 41 year old male with past medical history of Morbid obesity presented to the ED via EMS with the chief complaints of Left upper quadrant pain x 2 days and SOB admitted for evaluation of shortness of breath and left upper quadrant pain # Acute SOB continues , pre & post exercise oxygenation is 87% with exertion, patient needs oxygen prior to discharge but has no medical coverage for his oxygen , therefore can't be discharged until oxygenation is arranged , Hypoxia is due to Obesity Hypoventilation Syndrome/ sleep apnea( Pickwickian syndrome) ; needs sleep study work up as an outpatient .CT of the chest negative for PE. # Abdominal pain due to elevated lipids-Given the h/o alcohol intake since 14 years; amylase 64; lipase 187, Elevated liver enzymes trending down now CT abdomen with IV/PO contrast ordered, positive for diffuse fatty liver otherwise normal as per report , lipid profile T; T. Cholesterol 260; LDL 113; HDL 41 # Acute Hyperlipidemia; Cannot give Lipitor at this time since elevated CPK total level, will worsen ; T; T. Cholesterol 260; LDL 113; HDL 41, Gemfibrozil 600mg PO BID ; Fish oil 2gm PO BID ; Plant Technician consult requested. # ELevated CPK with Acute Rhabdomyolisis ;on IVF with CK- 1118 trending down in 600's now ; Continue IV Fluids 1/2 NS since elevated BP x 1 bag, will dc isotonic IVF. # Prediabetic ;[id number]; Diet and exercise , needs weight lose. # Morbidly Obese ; BMI 50.9 ;Diet and weight counseling ;further management as an outpatient # Substance abuse ;Smoking, marijuana and alcohol cessation counseling; Nicotine patch ordered # DVT Px : Heparin Patient needs home oxygen but can't afford, and has no insurance to cover , social services analyst is working on the case. once arranged then can be discharged home
[2016-11-02] MEDS ORDERED: PT OWN MED DRAWER 7, Y5N ONE (18:16)
[2016-11-02] MEDS ORDERED: amLODIPine BESYLATE 10 MG TABLET (FP) PO ONE (18:33)
[2016-11-03] MEDS ORDERED: ACETAMINOPHEN 325 MG TABLET (FP) PO ONE (02:53)
[2016-11-03] MEDS: HEPARIN NA (PORCINE) 5,000 UNITS/ML 1ML VIAL SQ SCH ×2 (05:56→14:43)
[2016-11-03] MEDS: GEMFIBROZIL 600 MG TABLET (FP) PO SCH ×2 (06:22→16:40)
[2016-11-03] MEDS ORDERED: PT OWN MED DRAWER 7, Y5N ONE ×3 (10:00→16:34)
[2016-11-03] MEDS: NICOTINE 14 MG/24 HOURS TOPICAL PATCH TD SCH (10:03)
[2016-11-03] MEDS: VITAMIN B COMPLEX W/C COMBO TABLET (FP) PO SCH (10:04)
[2016-11-03] MEDS: PANTOPRAZOLE 40 MG TABLET (FP) PO SCH (10:04)
[2016-11-03] MEDS: FOLIC ACID 1 MG TABLET (FP) PO SCH (10:04)
[2016-11-03] MEDS: THIAMINE HCL 100 MG TABLET (FP) PO SCH (10:04)
[2016-11-03] MEDS: OMEGA-3 ACID ETHYL ESTERS (FATTY-ACIDS) 1 GM CAPSULE (FP) PO SCH (10:04)
--- NOTE | 2016-11-03 12:50 | PN ---
Progress Note, Physician History of Present Illness: pulmonary alert,nad,not using bipap - Current Medication List Current Medications: Active Medications Albuterol Sulfate (Ventolin 0.083% Nebulizer Soln -) 1 amp NEB Q6H PRN PRN Reason: SHORT OF BREATH/WHEEZING Folic Acid (Folic Acid -) 1 mg PO DAILY [facility] Last Admin: 11/03/16 10:04 Dose: 1 mg Gemfibrozil (Lopid -) 600 mg PO BID@0700,1630 [facility] Last Admin: 11/03/16 06:22 Dose: 600 mg Heparin Sodium (Porcine) (Heparin -) 5,000 unit SQ TID [facility] Last Admin: 11/03/16 05:56 Dose: 5,000 unit Multivitamins (Total B With C -) 1 each PO DAILY [facility] Last Admin: 11/03/16 10:04 Dose: 1 each Nicotine (Nicoderm Patch -) 14 mg TD DAILY [facility] Last Admin: 11/03/16 10:03 Dose: 14 mg [id number] Ethyl Esters (Lovaza -) 2 gm PO BID [facility] Last Admin: 11/03/16 10:04 Dose: 2 gm Pantoprazole Sodium (Protonix -) 40 mg PO DAILY [facility] Last Admin: 11/03/16 10:04 Dose: 40 mg Thiamine HCl (Vitamin B1 -) 100 mg PO DAILY [facility] Last Admin: 11/03/16 10:04 Dose: 100 mg - Objective Vital Signs: Vital Signs Temperature 99.5 F 11/03/16 09:50 Pulse Rate 105 H 11/03/16 09:50 Respiratory Rate 24 11/03/16 09:50 Blood Pressure 151/81 11/03/16 09:50 O2 Sat by Pulse Oximetry (%) 96 11/03/16 10:50 Constitutional: Yes: Calm, Obese Eyes: Yes: WNL HENT: Yes: WNL Neck: Yes: WNL Cardiovascular: Yes: Regular Rate and Rhythm, S1, S2 Respiratory: Yes: CTA Bilaterally Gastrointestinal: Yes: Normal Bowel Sounds, Soft Extremities: Yes: WNL Edema: No Assessment/Plan Problem List - Problems (1) Acute and chronic respiratory failure with hypercapnia Code(s): J96.22 - ACUTE AND CHRONIC RESPIRATORY FAILURE WITH HYPERCAPNIA (2) Sleep apnea Code(s): G47.30 - SLEEP APNEA, UNSPECIFIED (3) Obesities, morbid Code(s): E66.01 - MORBID (SEVERE) OBESITY DUE TO EXCESS CALORIES (4) Smoker Code(s): F17.200 - NICOTINE DEPENDENCE, UNSPECIFIED, UNCOMPLICATED Assessment/Plan Acute on Chronic Hypercapneic Respiratory failure Likely Obstructive Sleep Apnea/Obesity Hypoventilation Syndrome Morbid Obesity Smoker - BiPAP - taper FiO2 to maintain SpO2 >90% - sleep study as outpt and PAP device - smoking cessation, weight loss - DVT prophylaxis - home o2 DR SUE
--- NOTE | 2016-11-03 14:18 | DS ---
Physical Exam: SUBJECTIVE: Patient seen and examined at bedside. Pt complains of sleepiness and headache. He refused to use his BiPAP last night. No acute events overnight. Pt denies cp, sob, abd pain, nausea, vomiting, diarrhea, dysuria fever. OBJECTIVE: Vital Signs Period Temp Pulse Resp BP Sys/Marks Pulse Ox Last 24 Hr 98.0 F-99.5 F 94-110 18-24 119-159/81-119 93-96 PHYSICAL EXAM GENERAL: The patient is awake, alert, and fully oriented, in no acute distress. HEAD: Normal with no signs of trauma. EYES: PERRL, extraocular movements intact, sclera anicteric, conjunctiva clear. ENT: nasal cannula in place. Ears normal, nares patent, oropharynx clear without exudates, moist mucous membranes. NECK: Trachea midline, full range of motion, supple. LUNGS: Breath sounds equal, clear to auscultation bilaterally, no wheezes, no crackles, no accessory muscle use. HEART: Regular rate and rhythm, S1, S2 without murmur, rub or gallop. ABDOMEN: obese. Soft, nontender, nondistended, normoactive bowel sounds, no guarding, no rebound, no hepatosplenomegaly, no masses. EXTREMITIES: 2+ pulses, warm, well-perfused, no edema. NEUROLOGICAL: Cranial nerves II through XII grossly intact. Normal speech, gait not observed. PSYCH: Normal mood, normal affect. SKIN: Warm, dry, normal turgor, no rashes or lesions noted. LABS Laboratory Results - last 24 hr 11/02/16 07:35 Free T3 3.0 HOSPITAL COURSE: Date of Admission:10/31/16 Date of Discharge: 11/03/16 Patient is a 41 year old male with past medical history of Morbid obesity presented to the ED via EMS with the chief complaints of Left upper quadrant pain x 2 days and SOB admitted for evaluation of shortness of breath and left upper quadrant pain. He was seen by pulmonology who recommended out pt sleep study, smoking cessation, weight loss, checking O2sat at rest and post exercise on room air. Pt had imaging of the chest which ruled out PE, as well as infiltrate. Pt had pre/post exercise O2 sat testing, which revealed that he was hypoxic and in need of home O2. Pt was neg for troponins. Pt had an ABG, which revealed respiratory acidosis with metabolic alkalosis, suggesting Pickwickian Obesity Hypoventilation Syndrome. Sleep study was recommended. During his stay, the patient complained of left finger tingling. Labs revealed no abnormalities of Thyroid, B12, or folate. The patient was also found to have metabolic syndrome (with hyperlipidemia), prediabetes and fatty liver disease and was seen by the diversified crops i farmworker. The patient was found to have rhabdomyolysis which resolved after IVF. The patient was counseled about his drinking, and drug use, particularly with respect to his difficulty sleeping. Minutes to complete discharge: 45 Discharge Summary Reason For Visit: ALCOHOL DEPENDENCE,SLEEP APNEA,MORBID OBESITY, Current Active Problems Acute and chronic respiratory failure with hypercapnia (Acute) Respiratory distress (Acute) Morbid obesity due to excess calories (Chronic) Obesities, morbid (Chronic) Sleep apnea (Chronic) Smoker (Chronic) Condition: Good - Instructions Diet, Activity, Other Instructions: You were admitted to the hospital for acute and chronic respiratory failure with hypercapnia. You were given BiPAP and neubilzer treatments to help your breathing. While you were in the hospital, it was felt that you may have sleep apnea, and recommendations were made for you to follow up with your clicking machine operator. Please ensure you take all your prescribed medications as directed, and please follow up with your doctors. Please return to the emergency department if you develop new symptoms or if your symptoms worsen. Referrals: Farshad Moralez MD [Staff Physician] - 1 Week - Home Medications Comprehensive Discharge Medication List: Ambulatory Orders Nicotine Patch [Nicoderm Patch -] 14 mg TD DAILY #20 patch 11/02/16
[2016-11-03 14:30] LABS: ARTERIAL BLD GAS O2 SATURATION 93.7 % (90-98.9); ARTERIAL BLOOD GAS BASE EXCESS 2.9 meq/l (-2-2); ARTERIAL BLOOD GAS HCO3 28.5 meq/L (22-26); ARTERIAL BLOOD GAS PO2 70.9 mmHg (80-100); ARTERIAL BLOOD GAS pH 7.38 (7.35-7.45)
[2016-11-03 14:32] LABS: ALLENS TEST POSITIVE; ART PUNCT SITE RIGHT RADIAL; LPM/O2% room air; PT. ON O2? no
[2016-11-03] MEDS ORDERED: amLODIPine BESYLATE 5 MG TABLET (FP) PO ONE (16:09)
[2016-11-03 18:23] VITALS: BP 130/80; PULSE 116
[2016-11-03 18:50] VITALS: TEMP 97.5
--- NOTE | 2016-11-03 20:27 | PN ---
Teaching Attending Note Name of Resident: Trae Valero ATTENDING PHYSICIAN STATEMENT I saw and evaluated the patient. I reviewed the resident's note and discussed the case with the resident. I agree with the resident's findings and plan as documented. SUBJECTIVE: seen at 1 pm . no SOB or CP OBJECTIVE: NAD , CV : RRR Lung s: CTAB Ext : no edema ASSESSMENT AND PLAN: 41 year old male with past medical history of Morbid obesity and no medical f/ u who presented with Left upper quadrant pain x 2 days and SOB 1- SOB , and transient Hypoxia with ambulation , likely due to MARYBETH and hypoventilation from body habitus No PNA , no wheezing,. .Smoking is contributing . repeat ambulatory pulse ox with no need for O2 at home f/u with Pulm need sleep study and PFTS as out pt counseled o n smoking sensation 2- TUQ pain , resolved , no clear etiology 3- elevated TG : started on Gimfibrozil, fell off dc med list by mistake. will call pt and prescribe it 4- Rhabdomyolysis , resolved with IVF 5- alcohol abuse , no signs of withdrawal ., counseled dc home given [facility] will apply for insurance
--- NOTE | 2016-11-04 14:19 | DS ---
Physical Exam: SUBJECTIVE: Patient seen and examined at bedside. Pt complains of sleepiness and headache. He refused to use his BiPAP last night. No acute events overnight. Pt denies cp, sob, abd pain, nausea, vomiting, diarrhea, dysuria fever. OBJECTIVE: Vital Signs Period Temp Pulse Resp BP Sys/Marks Pulse Ox Last 24 Hr 97.5 F-97.8 F 98-121 20-24 118-153/72-100 91-95 PHYSICAL EXAM GENERAL: The patient is awake, alert, and fully oriented, in no acute distress. HEAD: Normal with no signs of trauma. EYES: PERRL, extraocular movements intact, sclera anicteric, conjunctiva clear. ENT: nasal cannula in place. Ears normal, nares patent, oropharynx clear without exudates, moist mucous membranes. NECK: Trachea midline, full range of motion, supple. LUNGS: Breath sounds equal, clear to auscultation bilaterally, no wheezes, no crackles, no accessory muscle use. HEART: Regular rate and rhythm, S1, S2 without murmur, rub or gallop. ABDOMEN: obese. Soft, nontender, nondistended, normoactive bowel sounds, no guarding, no rebound, no hepatosplenomegaly, no masses. EXTREMITIES: 2+ pulses, warm, well-perfused, no edema. NEUROLOGICAL: Cranial nerves II through XII grossly intact. Normal speech, gait not observed. PSYCH: Normal mood, normal affect. SKIN: Warm, dry, normal turgor, no rashes or lesions noted. LABS Laboratory Results - last 24 hr 11/03/16 14:28 Puncture Site Right radial ABG pH 7.38 ABG pCO2 at Pt Temp 49.6 H ABG pO2 at Pt Temp 70.9 L ABG HCO3 28.5 H ABG O2 Sat (Measured) 93.7 ABG O2 Content 19.4 ABG Base Excess 2.9 H Tristan Test Positive Oxygen Flow Rate room air PEEP 0.0 HOSPITAL COURSE: Date of Admission:10/31/16 Date of Discharge: 11/04/16 Patient is a 41 year old male with past medical history of Morbid obesity presented to the ED via EMS with the chief complaints of Left upper quadrant pain x 2 days and SOB admitted for evaluation of shortness of breath and left upper quadrant pain. He was seen by pulmonology who recommended out pt sleep study, smoking cessation, weight loss, checking O2sat at rest and post exercise on room air. Pt had imaging of the chest which ruled out PE, as well as infiltrate. Pt had pre/post exercise O2 sat testing, which revealed that he was hypoxic and in need of home O2. Pt was neg for troponins. Pt had an ABG, which revealed respiratory acidosis with metabolic alkalosis, suggesting Pickwickian Obesity Hypoventilation Syndrome. Sleep study was recommended. During his stay, the patient complained of left finger tingling. Labs revealed no abnormalities of Thyroid, B12, or folate. The patient was also found to have metabolic syndrome (with hyperlipidemia), prediabetes and fatty liver disease and was seen by the bpm solution architect. The patient was found to have rhabdomyolysis which resolved after IVF. The patient was counseled about his drinking, and drug use, particularly with respect to his difficulty sleeping. The patient has been counselled frequently and extensively about the importance of follow up with a costume director as well as the importance of smoking cessation. Minutes to complete discharge: 45 Discharge Summary Reason For Visit: ALCOHOL DEPENDENCE,SLEEP APNEA,MORBID OBESITY, Condition: Good - Instructions Diet, Activity, Other Instructions: You were admitted to the hospital for left upper abdominal pain. A CT scan was done and showed that you have fatty liver disease, but your upper abdominal pain is most likely a muscle injury that should get better by itself. While you were in the hospital, you were found to have respiratory failure and suspected sleep apnea. You were given BiPAP and neubilzer treatments to help your breathing. You had exercise oxygen saturation tests that showed that your blood oxygen level is lower than normal especially when you exercise. Recommendations were made for you to follow up with your costume director for a sleep study. The sleep study will help determine the extent of your sleep apnea and will help the lung doctor decide the best way to treat you. You will possibly need a CPAP device. You also were found to have hypertension (high blood pressure). We are sending you home with a medication to lower your blood pressure called [facility]. You should take 5mg by mouth every day. It is very important that you take your medication as directed. Smoking is bad for your health. It is bad for your lungs, your heart, and many other organs. It is recommended that you quit smoking. If you need help, you should talk to your primary care doctor about getting help quitting. Also, your weight is a concern for your health. Your BMI is 46.4. It is suggested that you try to decrease your weight and practice good diet and exercise in order to improve your health. We added the following medications: for high triglycerides: Gemfibrazol 600mg twice a day, and fish oil daily for high blood pressure: Amlodipine 5mg daily for indigestion: Pantoprazole 40mg daily for 15 days Please return to the emergency department if you develop new symptoms or if your symptoms worsen. Please visit the [facility] . Referrals: Farshad Moralez MD [Staff Physician] - 1 Week Disposition: HOME - Home Medications Comprehensive Discharge Medication List: Ambulatory Orders Nicotine Patch [Nicoderm Patch -] 14 mg TD DAILY #20 patch 11/02/16 Amlodipine Besylate [Norvasc -] 5 mg PO DAILY #20 tablet 11/03/16 Gemfibrozil [Lopid -] 600 mg PO BID@0700,1630 #60 tablet 11/04/16 [place]-3 Acid Ethyl Esters [Lovaza -] 2 gm PO BID #60 cap 11/04/16 Pantoprazole Sodium [Protonix -] 40 mg PO DAILY #15 cap 11/04/16 This patient is new to me today: Yes Date on this admission: 11/04/16 Emergency Visit: No Critical Care patient: No - Discharge Referral [facility]erred to [facility] No
== END 2016-11-03 19:35 | disposition home or self-care (01) | DRG 133 ==
LOC: JER 04:00 → JERBED 05:58 → J5S 09:09
PROVIDERS: ADMIT Internal Medicine; ATTEND Internal Medicine
PROC: 5A09457 Assistance with Respiratory Ventilation, 24-96 Consecutive Hours, Continuous Positive Airway Pressure (ICD-10-PCS; principal; 2016-10-31)
DX: J96.22 Acute and chronic respiratory failure with hypercapnia (principal); E87.2 Acidosis; E87.3 Alkalosis; M62.82 Rhabdomyolysis; G47.30 Sleep apnea, unspecified; K76.0 Fatty (change of) liver, not elsewhere classified; R06.02 Shortness of breath; F10.10 Alcohol abuse, uncomplicated; E78.5 Hyperlipidemia, unspecified; E66.2 Morbid (severe) obesity with alveolar hypoventilation; Z68.42 Body mass index [BMI] 45.0-49.9, adult; R10.12 Left upper quadrant pain; F12.10 Cannabis abuse, uncomplicated; I10 Essential (primary) hypertension; F17.210 Nicotine dependence, cigarettes, uncomplicated; Z71.3 Dietary counseling and surveillance
CPT/HCPCS: 36415; 36600; 71020-TC; 71260-TC; 74177-TC; 80048; 80053; 80061; 80074; 80307; 82150; 82550; 82553; 82803; 83036; 83690; 83721; 83735; 83880; 84100; 84439; 84443; 84481; 84484; 85025; 90670; 93005; 93010; 93306-TC; 94660; 94761; 99285-25; J1644

== ENCOUNTER 2022-03-20 08:30 | Emergency (ER) | payer SELFPAY ==
[2022-03-20 08:36] VITALS: BP 145/93; PULSE 92; RESP 18; TEMP 98.1; BMI 41.5
[2022-03-20] MEDS ORDERED: KETOROLAC TROMETHAMINE 15 MG/ML VIAL IM ONE (11:28)
[2022-03-20] MEDS ORDERED: ACETAMINOPHEN 325 MG TABLET (FP) PO ONE (11:29)
[2022-03-20] MEDS ORDERED: KETOROLAC TROMETHAMINE 15 MG/ML VIAL ONE (11:44)
[2022-03-20] MEDS ORDERED: ACETAMINOPHEN 325 MG TABLET (FP) ONE (11:44)
== END 2022-03-20 12:15 | disposition home or self-care (01) ==
LOC: JER 08:30
PROC: 3E0233Z Introduction of Anti-inflammatory into Muscle, Percutaneous Approach (ICD-10-PCS; principal; 2022-03-20)
DX: M79.672 Pain in left foot (principal)
CPT/HCPCS: 73630-TC-LT; 93005; 93010; 99284-25

== ENCOUNTER 2023-06-22 09:09 | Inpatient (IN) | payer OTHER ==
[2023-06-22] MEDS ORDERED: ALBUTEROL SO4 2.5/IPRATROPIUM 0.5 INH SOL 3 ML VIAL.NEB. NEB ONE ×3 (10:13→15:42)
[2023-06-22] MEDS: ALBUTEROL SO4 2.5/IPRATROPIUM 0.5 INH SOL 3 ML VIAL.NEB. NEB SCH ×2 (10:20→15:44)
[2023-06-22 10:55] LABS: VENOUS BASE EXCESS 5.1 mmol/L (-2-2); VENOUS O2 SATURATION 72.6 % (70-80); VENOUS PH 7.219 (7.310-7.410)
[2023-06-22 10:57] LABS: VENOUS PCO2 92.2 mmHg (38-52)
[2023-06-22 11:05] LABS: CHLORIDE 103 mmol/L (98-107); SODIUM 140 mmol/L (136-145)
[2023-06-22 11:07] LABS: BLOOD UREA NITROGEN 24.9 mg/dL (7-18); CALCIUM 8.2 mg/dL (8.5-10.1); CO2 35 mmol/L (21-32); GLUCOSE,RANDOM 118 mg/dL (74-106)
[2023-06-22 11:08] LABS: ALBUMIN 3.3 g/dl (3.4-5.0)
[2023-06-22 11:10] LABS: CREATININE 1.1 mg/dL (0.55-1.3); SGPT/ALT 135 U/L (13-61)
[2023-06-22 11:11] LABS: SGOT/AST 100 U/L (15-37)
[2023-06-22 11:12] LABS: BILIRUBIN,TOTAL 0.3 mg/dL (0.2-1); TOT PROT 6.8 g/dl (6.4-8.2)
[2023-06-22 11:13] LABS: ALK PHOS 77 U/L (45-117)
[2023-06-22 11:14] LABS: BASO % 0.6 % (0-2.0); EOS % 1.4 % (0-4.5); HEMATOCRIT 45.5 % (35.4-49); HEMOGLOBIN 14.6 GM/dL (11.7-16.9); LYMPH % 11.4 % (8-40); MCH 29.9 pg (25.7-33.7); MCHC 32.1 g/dl (32.0-35.9); MEAN CELL VOLUME 93.2 fl (80-96); MEAN PLT VOLUME 9.2 fl (7.5-11.1); NEUT % 78.6 % (42.8-82.8); PLATELET COUNT 205 10^3/uL (134-434); RBC 4.89 M/mm3 (4.00-5.60); RDW 14.9 % (11.9-15.9); WHITE BLOOD COUNT 6.5 K/mm3 (4.0-10.0)
[2023-06-22 11:15] LABS: N-TERMINAL BNP 365.6 pg/ml (5-125)
[2023-06-22 11:17] LABS: ANION GAP 3 mmol/L (4-13); POTASSIUM 6.3 mmol/L (3.5-5.1)
[2023-06-22] MEDS ORDERED: FUROSEMIDE 40 MG/4 ML INJECTABLE VIAL ONE ×2 (12:10→18:12)
[2023-06-22] MEDS: FUROSEMIDE 40 MG/4 ML INJECTABLE VIAL IVPUSH ONE ×2 (12:14→18:20)
[2023-06-22 12:28] LABS: VENOUS BASE EXCESS 3.1 mmol/L (-2-2); VENOUS O2 SATURATION 88.3 % (70-80)
[2023-06-22 12:34] LABS: VENOUS PCO2 123.1 mmHg (38-52); VENOUS PH 7.109 (7.310-7.410)
[2023-06-22] MEDS ORDERED: ALBUTEROL SO4 2.5/IPRATROPIUM 0.5 INH SOL 3 ML VIAL.NEB. NEB PRN (13:26)
[2023-06-22] MEDS ORDERED: methylPREDNISolone NA SUCC 40 MG/1 ML VIAL ONE ×2 (13:49→18:11)
[2023-06-22] MEDS: methylPREDNISolone NA SUCC 40 MG/1 ML VIAL IVPUSH SCH ×2 (14:12→18:20)
[2023-06-22 14:40] LABS: POTASSIUM 4.9 mmol/L (3.5-5.1)
[2023-06-22 14:42] LABS: ARTERIAL BLOOD GAS BASE EXCESS 0.5 mmol/L (-2-2)
[2023-06-22 14:43] LABS: CALCIUM 8.4 mg/dL (8.5-10.1)
[2023-06-22 14:43] LABS: ALLENS TEST POSITIVE
[2023-06-22 14:44] LABS: BLOOD UREA NITROGEN 22.6 mg/dL (7-18)
[2023-06-22 14:44] LABS: VENT MODE IPAP; VENT RATE 14
[2023-06-22 14:45] LABS: ARTERIAL BLOOD GAS pH 7.166 (7.350-7.450)
[2023-06-22 14:47] LABS: CREATININE 1.1 mg/dL (0.55-1.3)
[2023-06-22] MEDS: ENOXAPARIN NA (PORCINE) 40 MG/0.4 ML DISP.SYRIN SQ SCH (22:31)
[2023-06-23] MEDS: ACETAMINOPHEN 1000 MG/100 ML BAG IVPB ONE (00:56)
[2023-06-23 06:39] LABS: POTASSIUM 5.1 mmol/L (3.5-5.1)
[2023-06-23 06:39] LABS: ARTERIAL BLD GAS O2 SATURATION 86.5 % (95-98); ARTERIAL BLOOD GAS BASE EXCESS 4.4 mmol/L (-2-2); ARTERIAL BLOOD GAS PO2 69.4 mmHg (80-100)
[2023-06-23 06:44] LABS: ALBUMIN 3.4 g/dl (3.4-5.0)
[2023-06-23 06:45] LABS: MAGNESIUM 2.5 mg/dL (1.8-2.4)
[2023-06-23 06:46] LABS: CALCIUM 8.4 mg/dL (8.5-10.1)
[2023-06-23 06:47] LABS: ALLENS TEST POSITIVE
[2023-06-23 06:47] LABS: BLOOD UREA NITROGEN 25.6 mg/dL (7-18); CREATININE 1.1 mg/dL (0.55-1.3)
[2023-06-23 06:48] LABS: ARTERIAL BLOOD GAS pH 7.142 (7.350-7.450)
[2023-06-23 06:50] LABS: PHOSPHOROUS 6.9 mg/dL (2.5-4.9)
[2023-06-23 06:51] LABS: BILIRUBIN,TOTAL 0.5 mg/dL (0.2-1)
[2023-06-23 06:57] LABS: INR 1.17 (0.83-1.09); PROTHROMBIN TIME (PATIENT) 13.6 SEC (9.7-13.0)
[2023-06-23 07:41] LABS: HEMATOCRIT 46.5 % (35.4-49); HEMOGLOBIN 15.6 GM/dL (11.7-16.9); MCH 31.3 pg (25.7-33.7); MCHC 33.6 g/dl (32.0-35.9); MEAN CELL VOLUME 93.2 fl (80-96); MEAN PLT VOLUME 9.4 fl (7.5-11.1); PLATELET COUNT 205 10^3/uL (134-434); RBC 4.99 M/mm3 (4.00-5.60); RDW 15.1 % (11.9-15.9); WHITE BLOOD COUNT 7.8 K/mm3 (4.0-10.0)
[2023-06-23] MEDS ORDERED: ALBUTEROL SO4 HFA INHALER IH PRN (08:10)
[2023-06-23] MEDS ORDERED: ACETAMINOPHEN 325 MG TABLET (FP) PO PRN (09:12)
[2023-06-23] MEDS: FUROSEMIDE 40 MG/4 ML INJECTABLE VIAL IVPUSH ONE (09:25)
[2023-06-23] MEDS: FUROSEMIDE 40 MG/4 ML INJECTABLE VIAL IVPUSH SCH ×2 (09:25→15:25)
[2023-06-23] MEDS ORDERED: ENOXAPARIN NA (PORCINE) 40 MG/0.4 ML DISP.SYRIN SQ SCH (10:00)
[2023-06-23 12:30] LABS: ARTERIAL BLD GAS O2 SATURATION 92.8 % (95-98); ARTERIAL BLOOD GAS BASE EXCESS 7.6 mmol/L (-2-2); ARTERIAL BLOOD GAS PO2 72.7 mmHg (80-100); ARTERIAL BLOOD GAS pH 7.318 (7.350-7.450)
[2023-06-23 12:57] LABS: VENT RATE 16
[2023-06-23] MEDS: MUPIROCIN 2% TOPICAL OINTMENT FOR DECOLONIZATION NS SCH (15:25)
[2023-06-23] MEDS: CHLORHEXIDINE GLUCONATE 4% CLEANSER FOR DECOLONIZATION TP SCH (22:24)
[2023-06-24] MEDS: TAMSULOSIN HCL 0.4 MG CAP PO SCH (01:12)
[2023-06-24 08:00] LABS: CHLORIDE 98 mmol/L (98-107); POTASSIUM 4.4 mmol/L (3.5-5.1); SODIUM 142 mmol/L (136-145)
[2023-06-24 08:07] LABS: BLOOD UREA NITROGEN 37.5 mg/dL (7-18); GLUCOSE,RANDOM 127 mg/dL (74-106)
[2023-06-24 08:08] LABS: ANION GAP 2 mmol/L (4-13); CO2 42 mmol/L (21-32); MAGNESIUM 2.5 mg/dL (1.8-2.4)
[2023-06-24 08:10] LABS: CREATININE 1.1 mg/dL (0.55-1.3)
[2023-06-24 08:16] LABS: CALCIUM 8.5 mg/dL (8.5-10.1)
[2023-06-24] MEDS: MELATONIN 5 MG TABLETS PO PRN (23:13)
[2023-06-25 07:37] LABS: CALCIUM 8.5 mg/dL (8.5-10.1)
[2023-06-25 07:38] LABS: BLOOD UREA NITROGEN 41.8 mg/dL (7-18)
[2023-06-25 07:41] LABS: CREATININE 1.2 mg/dL (0.55-1.3)
[2023-06-25] MEDS: methylPREDNISolone NA SUCC 40 MG/1 ML VIAL IVPUSH SCH (10:37)
[2023-06-25] MEDS: FUROSEMIDE 40 MG/4 ML INJECTABLE VIAL IVPUSH SCH (10:37)
[2023-06-26] MEDS ORDERED: ALBUTEROL SO4 HFA INHALER IH PRN (00:29)
[2023-06-26] MEDS ORDERED: ACETAMINOPHEN 325 MG TABLET (FP) PO PRN (00:29)
[2023-06-26] MEDS: ALBUTEROL SO4 2.5/IPRATROPIUM 0.5 INH SOL 3 ML VIAL.NEB. NEB SCH (07:30)
[2023-06-26 08:41] LABS: BASO % 0.2 % (0-2.0); EOS % 0.6 % (0-4.5); HEMATOCRIT 48.3 % (35.4-49); HEMOGLOBIN 15.5 GM/dL (11.7-16.9); LYMPH % 13.9 % (8-40); MCH 29.8 pg (25.7-33.7); MCHC 32.1 g/dl (32.0-35.9); MEAN CELL VOLUME 92.9 fl (80-96); MONO % 9.9 % (3.8-10.2); NEUT % 75.4 % (42.8-82.8); PLATELET COUNT 192 10^3/uL (134-434); RDW 14.5 % (11.9-15.9); WHITE BLOOD COUNT 6.4 K/mm3 (4.0-10.0)
[2023-06-26 09:02] LABS: POTASSIUM 4.1 mmol/L (3.5-5.1)
[2023-06-26 09:04] LABS: ALBUMIN 3.1 g/dl (3.4-5.0); MAGNESIUM 2.6 mg/dL (1.8-2.4)
[2023-06-26 09:06] LABS: CALCIUM 8.6 mg/dL (8.5-10.1)
[2023-06-26 09:07] LABS: BLOOD UREA NITROGEN 35.4 mg/dL (7-18); CREATININE 0.9 mg/dL (0.55-1.3); PHOSPHOROUS 5.1 mg/dL (2.5-4.9)
[2023-06-26 09:09] LABS: BILIRUBIN,TOTAL 0.5 mg/dL (0.2-1); TOT PROT 6.6 g/dl (6.4-8.2)
[2023-06-26] MEDS ORDERED: methylPREDNISolone NA SUCC 40 MG/1 ML VIAL IVPUSH SCH (10:00)
[2023-06-26] MEDS ORDERED: MUPIROCIN 2% TOPICAL OINTMENT FOR DECOLONIZATION NS SCH (10:00)
[2023-06-26] MEDS: FUROSEMIDE 40 MG/4 ML INJECTABLE VIAL IVPUSH SCH (10:14)
[2023-06-26] MEDS: ENOXAPARIN NA (PORCINE) 40 MG/0.4 ML DISP.SYRIN SQ SCH (10:15)
[2023-06-26] MEDS: TAMSULOSIN HCL 0.4 MG CAP PO SCH (10:15)
[2023-06-26] MEDS ORDERED: CHLORHEXIDINE GLUCONATE 4% CLEANSER FOR DECOLONIZATION TP SCH (22:00)
[2023-06-26] MEDS: ACETAMINOPHEN 325 MG TABLET (FP) PO PRN (22:35)
[2023-06-27 09:16] LABS: BASO % 0.3 % (0-2.0); EOS % 2.3 % (0-4.5); HEMATOCRIT 49.6 % (35.4-49); HEMOGLOBIN 16.9 GM/dL (11.7-16.9); LYMPH % 15.6 % (8-40); MCH 30.8 pg (25.7-33.7); MEAN CELL VOLUME 90.7 fl (80-96); MEAN PLT VOLUME 8.9 fl (7.5-11.1); NEUT % 73.8 % (42.8-82.8); PLATELET COUNT 175 10^3/uL (134-434); RBC 5.48 M/mm3 (4.00-5.60); RDW 14.4 % (11.9-15.9); WHITE BLOOD COUNT 4.5 K/mm3 (4.0-10.0)
[2023-06-27 09:32] LABS: BLOOD UREA NITROGEN 29.7 mg/dL (7-18); CALCIUM 9.2 mg/dL (8.5-10.1)
[2023-06-27 09:33] LABS: ALBUMIN 3.2 g/dl (3.4-5.0)
[2023-06-27 09:35] LABS: CREATININE 0.9 mg/dL (0.55-1.3)
[2023-06-27 09:37] LABS: BILIRUBIN,TOTAL 0.6 mg/dL (0.2-1); TOT PROT 6.7 g/dl (6.4-8.2)
[2023-06-27] MEDS: POLYETHYLENE GLYCOL (HEALTHYLAX) 3350 17 GM PACKET PO SCH (09:44)
[2023-06-27] MEDS: guaiFENesin 600 MG TABLET.ER (FP) PO SCH (11:49)
[2023-06-27] MEDS: FUROSEMIDE 40 MG/4 ML INJECTABLE VIAL IVPUSH SCH (15:09)
[2023-06-28 06:49] LABS: HEMATOCRIT 48.5 % (35.4-49); HEMOGLOBIN 15.9 GM/dL (11.7-16.9); MCH 30.1 pg (25.7-33.7); MCHC 32.8 g/dl (32.0-35.9); MEAN CELL VOLUME 91.6 fl (80-96); MEAN PLT VOLUME 9.2 fl (7.5-11.1); PLATELET COUNT 170 10^3/uL (134-434); RBC 5.29 M/mm3 (4.00-5.60); RDW 14.1 % (11.9-15.9); WHITE BLOOD COUNT 4.7 K/mm3 (4.0-10.0)
[2023-06-28 07:09] LABS: POTASSIUM 3.9 mmol/L (3.5-5.1)
[2023-06-28 07:18] LABS: ALBUMIN 3.2 g/dl (3.4-5.0); CALCIUM 8.6 mg/dL (8.5-10.1); MAGNESIUM 2.7 mg/dL (1.8-2.4)
[2023-06-28 07:21] LABS: CREATININE 0.9 mg/dL (0.55-1.3)
[2023-06-28 07:22] LABS: BILIRUBIN,TOTAL 0.7 mg/dL (0.2-1); TOT PROT 6.6 g/dl (6.4-8.2)
[2023-06-28] MEDS: guaiFENesin 600 MG TABLET.ER (FP) PO SCH (11:19)
[2023-06-28] MEDS: POTASSIUM CHLORIDE ORAL LIQUID 20 MEQ/15 ML PO ONE (16:09)
[2023-06-29 06:41] LABS: HEMATOCRIT 48.1 % (35.4-49); HEMOGLOBIN 15.8 GM/dL (11.7-16.9); MCH 30.1 pg (25.7-33.7); MCHC 32.9 g/dl (32.0-35.9); MEAN CELL VOLUME 91.7 fl (80-96); MEAN PLT VOLUME 9.1 fl (7.5-11.1); PLATELET COUNT 145 10^3/uL (134-434); RBC 5.24 M/mm3 (4.00-5.60); RDW 14.3 % (11.9-15.9); WHITE BLOOD COUNT 4.3 K/mm3 (4.0-10.0)
[2023-06-29 07:03] LABS: POTASSIUM 4.1 mmol/L (3.5-5.1)
[2023-06-29 07:07] LABS: ALBUMIN 3.1 g/dl (3.4-5.0); CALCIUM 8.1 mg/dL (8.5-10.1)
[2023-06-29 07:08] LABS: BLOOD UREA NITROGEN 27.7 mg/dL (7-18)
[2023-06-29 07:10] LABS: CREATININE 0.9 mg/dL (0.55-1.3); PHOSPHOROUS 4.2 mg/dL (2.5-4.9)
[2023-06-29 07:11] LABS: TOT PROT 6.4 g/dl (6.4-8.2)
[2023-06-29 07:12] LABS: BILIRUBIN,TOTAL 0.4 mg/dL (0.2-1); MAGNESIUM 2.4 mg/dL (1.8-2.4)
[2023-06-29] MEDS: POLYETHYLENE GLYCOL (HEALTHYLAX) 3350 17 GM PACKET PO SCH (12:29)
[2023-06-29 15:54] VITALS: BMI 43.8
[2023-06-29] MEDS: DOCUSATE SODIUM 100 MG CAPSULE (FP) PO SCH (22:16)
[2023-06-30 06:07] LABS: BENZODIAZEPINES, UR Negative ng/mL (Cutoff=200); CANNABINOIDS, URINE Negative ng/mL (Cutoff=20); METHADONE, URINE Negative ng/mL (Cutoff=300); OPIATES, UR Negative ng/mL (Cutoff=300); PHENCYCLIDINE, URINE Negative ng/mL (Cutoff=25)
[2023-06-30 06:59] LABS: HEMATOCRIT 49.4 % (35.4-49); HEMOGLOBIN 16.3 GM/dL (11.7-16.9); MCH 30.1 pg (25.7-33.7); MCHC 32.9 g/dl (32.0-35.9); MEAN CELL VOLUME 91.4 fl (80-96); MEAN PLT VOLUME 9.4 fl (7.5-11.1); PLATELET COUNT 145 10^3/uL (134-434); RBC 5.41 M/mm3 (4.00-5.60); RDW 14.6 % (11.9-15.9); WHITE BLOOD COUNT 4.2 K/mm3 (4.0-10.0)
[2023-06-30 07:25] LABS: CALCIUM 8.8 mg/dL (8.5-10.1)
[2023-06-30 07:26] LABS: ALBUMIN 3.4 g/dl (3.4-5.0); BLOOD UREA NITROGEN 32.8 mg/dL (7-18); MAGNESIUM 2.2 mg/dL (1.8-2.4)
[2023-06-30 07:29] LABS: CREATININE 0.9 mg/dL (0.55-1.3); PHOSPHOROUS 4.9 mg/dL (2.5-4.9)
[2023-06-30 07:30] LABS: TOT PROT 6.7 g/dl (6.4-8.2)
[2023-06-30 07:32] LABS: BILIRUBIN,TOTAL 0.6 mg/dL (0.2-1)
[2023-07-01 08:27] LABS: HEMATOCRIT 50.1 % (35.4-49); HEMOGLOBIN 16.8 GM/dL (11.7-16.9); MCH 30.7 pg (25.7-33.7); MCHC 33.6 g/dl (32.0-35.9); MEAN CELL VOLUME 91.4 fl (80-96); MEAN PLT VOLUME 9.5 fl (7.5-11.1); PLATELET COUNT 149 10^3/uL (134-434); RBC 5.49 M/mm3 (4.00-5.60); RDW 14.5 % (11.9-15.9); WHITE BLOOD COUNT 4.4 K/mm3 (4.0-10.0)
[2023-07-01 09:21] LABS: ALBUMIN 3.6 g/dl (3.4-5.0); BLOOD UREA NITROGEN 32.5 mg/dL (7-18); CALCIUM 9.3 mg/dL (8.5-10.1); MAGNESIUM 2.6 mg/dL (1.8-2.4)
[2023-07-01 09:24] LABS: CREATININE 0.9 mg/dL (0.55-1.3)
[2023-07-01 09:25] LABS: PHOSPHOROUS 4.8 mg/dL (2.5-4.9)
[2023-07-01 09:26] LABS: BILIRUBIN,TOTAL 0.5 mg/dL (0.2-1)
[2023-07-02 08:22] LABS: HEMATOCRIT 50.3 % (35.4-49); HEMOGLOBIN 16.3 GM/dL (11.7-16.9); MCH 29.6 pg (25.7-33.7); MCHC 32.4 g/dl (32.0-35.9); MEAN CELL VOLUME 91.1 fl (80-96); MEAN PLT VOLUME 10.4 fl (7.5-11.1); PLATELET COUNT 146 10^3/uL (134-434); RBC 5.52 M/mm3 (4.00-5.60); RDW 14.5 % (11.9-15.9); WHITE BLOOD COUNT 4.5 K/mm3 (4.0-10.0)
[2023-07-02 08:35] LABS: POTASSIUM 4.4 mmol/L (3.5-5.1)
[2023-07-02 08:37] LABS: CALCIUM 9.2 mg/dL (8.5-10.1)
[2023-07-02 08:38] LABS: ALBUMIN 3.5 g/dl (3.4-5.0); BLOOD UREA NITROGEN 29.9 mg/dL (7-18); MAGNESIUM 2.4 mg/dL (1.8-2.4)
[2023-07-02 08:41] LABS: PHOSPHOROUS 4.7 mg/dL (2.5-4.9)
[2023-07-02 08:42] LABS: BILIRUBIN,TOTAL 0.7 mg/dL (0.2-1)
[2023-07-02] MEDS ORDERED: ALBUTEROL SO4 HFA INHALER IH PRN (08:48)
[2023-07-02] MEDS: POLYETHYLENE GLYCOL (HEALTHYLAX) 3350 17 GM PACKET PO SCH (10:16)
[2023-07-02] MEDS: guaiFENesin 600 MG TABLET.ER (FP) PO SCH (10:17)
[2023-07-02] MEDS: ENOXAPARIN NA (PORCINE) 40 MG/0.4 ML DISP.SYRIN SQ SCH (10:17)
[2023-07-02] MEDS: TAMSULOSIN HCL 0.4 MG CAP PO SCH (10:52)
[2023-07-02] MEDS: ALBUTEROL SO4 2.5/IPRATROPIUM 0.5 INH SOL 3 ML VIAL.NEB. NEB SCH (12:35)
[2023-07-02] MEDS: FUROSEMIDE 40 MG/4 ML INJECTABLE VIAL IVPUSH SCH (13:46)
[2023-07-02] MEDS: MINERAL OIL/PET HY-PHL TOPICAL OINTMENT 454 GM JAR TP SCH (17:05)
[2023-07-02] MEDS: DOCUSATE SODIUM 100 MG CAPSULE (FP) PO SCH (22:25)
[2023-07-03] MEDS ORDERED: TAMSULOSIN HCL 0.4 MG CAP PO SCH (08:30)
[2023-07-03 08:49] LABS: POTASSIUM 4.1 mmol/L (3.5-5.1)
[2023-07-03 08:52] LABS: CALCIUM 9.4 mg/dL (8.5-10.1)
[2023-07-03 08:53] LABS: ALBUMIN 3.5 g/dl (3.4-5.0); BLOOD UREA NITROGEN 27.2 mg/dL (7-18)
[2023-07-03 08:58] LABS: BILIRUBIN,TOTAL 0.5 mg/dL (0.2-1); TOT PROT 6.8 g/dl (6.4-8.2)
[2023-07-03] MEDS: PANTOPRAZOLE 20 MG TABLET PO SCH (14:49)
[2023-07-04] MEDS: MELATONIN 5 MG TABLETS PO PRN (01:46)
[2023-07-04 08:37] LABS: BASO % 0.6 % (0-2.0); EOS % 1.9 % (0-4.5); HEMATOCRIT 48.2 % (35.4-49); HEMOGLOBIN 16.3 GM/dL (11.7-16.9); LYMPH % 19.9 % (8-40); MCH 30.2 pg (25.7-33.7); MCHC 33.7 g/dl (32.0-35.9); MEAN CELL VOLUME 89.4 fl (80-96); MEAN PLT VOLUME 10.1 fl (7.5-11.1); MONO % 12.4 % (3.8-10.2); NEUT % 65.2 % (42.8-82.8); PLATELET COUNT 132 10^3/uL (134-434); RBC 5.39 M/mm3 (4.00-5.60); RDW 14.2 % (11.9-15.9); WHITE BLOOD COUNT 4.1 K/mm3 (4.0-10.0)
[2023-07-04 09:03] LABS: POTASSIUM 3.8 mmol/L (3.5-5.1)
[2023-07-04 09:10] LABS: ALBUMIN 3.4 g/dl (3.4-5.0); BLOOD UREA NITROGEN 25.3 mg/dL (7-18)
[2023-07-04 09:12] LABS: BILIRUBIN,TOTAL 0.5 mg/dL (0.2-1); TOT PROT 6.6 g/dl (6.4-8.2)
[2023-07-04] MEDS: metoPROLOL SUCCINATE 25 MG TAB.SR.24H (FP) PO SCH (10:33)
[2023-07-04 18:46] VITALS: RESP 20
[2023-07-04] MEDS: ACETAMINOPHEN 325 MG TABLET (FP) PO ONE (22:23)
[2023-07-05 08:13] LABS: POTASSIUM 3.8 mmol/L (3.5-5.1)
[2023-07-05 08:17] LABS: ALBUMIN 3.6 g/dl (3.4-5.0); BLOOD UREA NITROGEN 23.7 mg/dL (7-18)
[2023-07-05 08:18] LABS: CALCIUM 9.2 mg/dL (8.5-10.1)
[2023-07-05 08:22] LABS: BILIRUBIN,TOTAL 0.5 mg/dL (0.2-1); TOT PROT 6.9 g/dl (6.4-8.2)
[2023-07-05 09:57] LABS: BILIRUBIN,DIRECT 0.1 mg/dL (0.0-0.2)
[2023-07-05] MEDS: ENOXAPARIN NA (PORCINE) 40 MG/0.4 ML DISP.SYRIN SQ SCH (21:37)
[2023-07-06] MEDS: FUROSEMIDE 40 MG TABLET (FP) PO SCH (10:04)
[2023-07-06 10:37] LABS: HEMATOCRIT 46.8 % (35.4-49); HEMOGLOBIN 15.6 GM/dL (11.7-16.9); MCH 29.9 pg (25.7-33.7); MCHC 33.4 g/dl (32.0-35.9); MEAN CELL VOLUME 89.5 fl (80-96); PLATELET COUNT 159 10^3/uL (134-434); RBC 5.23 M/mm3 (4.00-5.60); RDW 14.3 % (11.9-15.9); WHITE BLOOD COUNT 4.4 K/mm3 (4.0-10.0)
[2023-07-06 11:01] LABS: POTASSIUM 4.1 mmol/L (3.5-5.1)
[2023-07-06 11:06] LABS: ALBUMIN 3.6 g/dl (3.4-5.0); CALCIUM 9.6 mg/dL (8.5-10.1)
[2023-07-06 11:11] LABS: BILIRUBIN,TOTAL 0.5 mg/dL (0.2-1); TOT PROT 6.8 g/dl (6.4-8.2)
[2023-07-06] MEDS: BUDESONIDE/FORMETEROL FUMARATE 80/4.5 mcg INHALER IH SCH (22:00)
[2023-07-07 07:21] VITALS: BP 136/99; PULSE 92; TEMP 98.2
== END 2023-07-07 16:20 | disposition home or self-care (01) | DRG 194 ==
LOC: JER 09:09 → JERBED 13:17 → J4W 20:13 → JICU 06-23 08:15 → J2W 06-24 18:43 → J4W 06-25 23:14 → J7W 07-02 02:10 → J5S 07-05 19:22
PROVIDERS: ADMIT Internal Medicine; ATTEND Internal Medicine
DX: I11.0 Hypertensive heart disease with heart failure (principal); I50.31 Acute diastolic (congestive) heart failure; E11.9 Type 2 diabetes mellitus without complications; F17.210 Nicotine dependence, cigarettes, uncomplicated; J96.22 Acute and chronic respiratory failure with hypercapnia; G47.33 Obstructive sleep apnea (adult) (pediatric); E66.01 Morbid (severe) obesity due to excess calories; Z68.41 Body mass index [BMI] 40.0-44.9, adult; E78.5 Hyperlipidemia, unspecified; J44.1 Chronic obstructive pulmonary disease with (acute) exacerbation; R79.89 Other specified abnormal findings of blood chemistry; F14.10 Cocaine abuse, uncomplicated; F12.10 Cannabis abuse, uncomplicated; E87.70 Fluid overload, unspecified; E87.5 Hyperkalemia; K76.0 Fatty (change of) liver, not elsewhere classified; F19.10 Other psychoactive substance abuse, uncomplicated; E87.29 Other acidosis; E88.810 Metabolic syndrome
CPT/HCPCS: 0241U-QW; 36415; 36600; 71045-TC-FY; 74177-TC; 76705-TC; 80048; 80053; 80061; 80076; 80307; 82550; 82553; 82803; 82962; 83036; 83605; 83735; 83880; 84100; 84484; 85025; 85027; 85610; 86140; 86704; 86708; 86803; 87340; 87517; 93005; 93010; 93306-TC; 94010; 94640; 94660; 94761; 97116-GP; 97161-GP; 99291; J0131; Q9967

== ENCOUNTER 2023-12-28 09:08 | Emergency (ER) | payer OTHER ==
[2023-12-28 09:30] VITALS: BP 151/74; PULSE 105; RESP 16; TEMP 99.5; BMI 43.7
[2023-12-28] MEDS ORDERED: AMOX TR/POT CLAV 875MG/125MG TABLETS (FP) ONE (09:56)
[2023-12-28] MEDS: AMOX TR/POT CLAV 875MG/125MG TABLETS (FP) PO ONE (09:58)
== END 2023-12-28 10:43 | disposition home or self-care (01) ==
LOC: JER 09:08
DX: H66.92 Otitis media, unspecified, left ear (principal); H92.02 Otalgia, left ear
CPT/HCPCS: 99283-25

== ENCOUNTER 2024-04-17 19:12 | Observation (INO) | payer OTHER ==
[2024-04-17] MEDS ORDERED: methylPREDNISolone NA SUCC 125 MG/2 ML VIAL ONE (19:34)
[2024-04-17] MEDS: ALBUTEROL SO4 2.5/IPRATROPIUM 0.5 INH SOL 3 ML VIAL.NEB. NEB SCH ×2 (19:57→21:00)
[2024-04-17] MEDS: methylPREDNISolone NA SUCC 125 MG/2 ML VIAL IVPB ONE (19:57)
[2024-04-17 19:59] LABS: VENOUS BASE EXCESS 6.6 mmol/L (-2-2); VENOUS O2 SATURATION 83.2 % (70-80); VENOUS PH 7.259 (7.310-7.410)
[2024-04-17 20:02] LABS: VENOUS PCO2 84.4 mmHg (38-52)
[2024-04-17 20:04] LABS: BASO % 0.7 % (0-2.0); EOS % 3.3 % (0-4.5); HEMATOCRIT 41.7 % (35.4-49); HEMOGLOBIN 13.3 GM/dL (11.7-16.9); LYMPH % 14.5 % (8-40); MCH 28.7 pg (25.7-33.7); MCHC 31.9 g/dl (32.0-35.9); MEAN CELL VOLUME 89.7 fl (80-96); MONO % 6.9 % (3.8-10.2); NEUT % 74.6 % (42.8-82.8); PLATELET COUNT 195 10^3/uL (134-434); RBC 4.64 M/mm3 (4.00-5.60); RDW 14.8 % (11.9-15.9); WHITE BLOOD COUNT 6.3 K/mm3 (4.0-10.0)
[2024-04-17 20:14] LABS: PROTHROMBIN TIME (PATIENT) 11.5 SEC (9.7-13.0)
[2024-04-17 20:17] LABS: ACTIVATED PTT 31.4 SECONDS (25.2-36.5)
[2024-04-17 20:22] LABS: CALCIUM 8.8 mg/dL (8.5-10.1)
[2024-04-17 20:23] LABS: ALBUMIN 3.8 g/dl (3.4-5.0); BLOOD UREA NITROGEN 24.2 mg/dL (7-18)
[2024-04-17 20:26] LABS: CREATININE 1.2 mg/dL (0.55-1.3)
[2024-04-17 20:28] LABS: BILIRUBIN,TOTAL 0.2 mg/dL (0.2-1); TOT PROT 7.2 g/dl (6.4-8.2)
[2024-04-17 20:31] LABS: N-TERMINAL BNP 37.6 pg/ml (5-125)
[2024-04-17] MEDS ORDERED: ALBUTEROL SO4 2.5/IPRATROPIUM 0.5 INH SOL 3 ML VIAL.NEB. NEB ONE ×3 (21:04→21:47)
[2024-04-17 21:37] LABS: VENOUS BASE EXCESS 2.8 mmol/L (-2-2); VENOUS O2 SATURATION 73.2 % (70-80); VENOUS PH 7.225 (7.310-7.410)
[2024-04-17] MEDS ORDERED: CEFTRIAXONE 1 G/50 ML PREMIX 50 ML IVPB ONE (21:52)
[2024-04-17] MEDS ORDERED: FUROSEMIDE 40 MG/4 ML INJECTABLE VIAL ONE (21:53)
[2024-04-17] MEDS ORDERED: AZITHROMYCIN IVPB 500 MG/250 ML BAG IVPB ONE (21:53)
[2024-04-17 21:56] LABS: POTASSIUM 4.3 mmol/L (3.5-5.1)
[2024-04-17 22:02] LABS: POTASSIUM 4.2 mmol/L (3.5-5.1)
[2024-04-17 22:03] LABS: CALCIUM 8.8 mg/dL (8.5-10.1)
[2024-04-17 22:04] LABS: BLOOD UREA NITROGEN 24.9 mg/dL (7-18)
[2024-04-17] MEDS: FUROSEMIDE 40 MG/4 ML INJECTABLE VIAL IVPUSH ONE (22:07)
[2024-04-17 22:08] LABS: CREATININE 1.2 mg/dL (0.55-1.3)
[2024-04-17] MEDS: AZITHROMYCIN IVPB 500 MG in DEXTROSE 5%-WATER - 250 ML IVPB ONE (22:15)
[2024-04-17 23:49] LABS: VENOUS BASE EXCESS -4.2 mmol/L (-2-2); VENOUS O2 SATURATION 56.3 % (70-80); VENOUS PCO2 68.9 mmHg (38-52)
[2024-04-18 00:24] LABS: VENOUS PH 7.187 (7.310-7.410)
[2024-04-18] MEDS ORDERED: ALBUTEROL SO4 2.5/IPRATROPIUM 0.5 INH SOL 3 ML VIAL.NEB. NEB PRN (01:38)
[2024-04-18] MEDS ORDERED: methylPREDNISolone NA SUCC 40 MG/1 ML VIAL IVPUSH SCH (02:00)
[2024-04-18] MEDS: methylPREDNISolone NA SUCC 40 MG/1 ML VIAL IVPUSH SCH (02:45)
[2024-04-18 02:58] LABS: ARTERIAL BLD GAS O2 SATURATION 95.5 % (95-98); ARTERIAL BLOOD GAS BASE EXCESS 0.7 mmol/L (-2-2); ARTERIAL BLOOD GAS PO2 97.7 mmHg (80-100)
[2024-04-18 02:59] LABS: ARTERIAL BLOOD GAS pH 7.192 (7.350-7.450); VENT MODE S/T; VENT RATE 12
[2024-04-18] MEDS: HEPARIN NA (PORCINE) 5,000 UNITS/ML 1ML VIAL SQ SCH (06:59)
[2024-04-18 07:37] LABS: HEMATOCRIT 43.4 % (35.4-49); HEMOGLOBIN 13.9 GM/dL (11.7-16.9); MCHC 32.1 g/dl (32.0-35.9); MEAN CELL VOLUME 90.4 fl (80-96); MEAN PLT VOLUME 9.2 fl (7.5-11.1); PLATELET COUNT 197 10^3/uL (134-434); RDW 15.2 % (11.9-15.9); WHITE BLOOD COUNT 6.9 K/mm3 (4.0-10.0)
[2024-04-18] MEDS: ALBUTEROL SO4 2.5/IPRATROPIUM 0.5 INH SOL 3 ML VIAL.NEB. NEB SCH (07:50)
[2024-04-18 07:55] LABS: POTASSIUM 5.4 mmol/L (3.5-5.1)
[2024-04-18 07:58] LABS: BLOOD UREA NITROGEN 23.8 mg/dL (7-18); CALCIUM 8.6 mg/dL (8.5-10.1)
[2024-04-18 07:59] LABS: MAGNESIUM 2.5 mg/dL (1.8-2.4)
[2024-04-18 08:01] LABS: CREATININE 0.9 mg/dL (0.55-1.3)
[2024-04-18 08:03] LABS: BILIRUBIN,TOTAL 0.4 mg/dL (0.2-1); PHOSPHOROUS 5.4 mg/dL (2.5-4.9); TOT PROT 7.5 g/dl (6.4-8.2)
[2024-04-18] MEDS: BUDESONIDE/FORMETEROL FUMARATE 80/4.5 mcg INHALER IH SCH (10:20)
[2024-04-18 12:17] LABS: ANISOCYTOSIS 0; HELMET CELLS 0; HOWELL-JOLLY BODIES 0; MACROCYTOSIS 0; OVALOCYTE 0; ROULEAU 0; SICKELED CELLS 0; TARGET CELLS 0; TEAR DROP CELLS 0; TOXIC GRANULATION 0
[2024-04-18] MEDS ORDERED: DEXTROSE 50%-WATER 25 GM/50 ML DISP.SYRIN ONE (13:09)
[2024-04-18] MEDS: ACETAMINOPHEN 325 MG TABLET (FP) PO ONE ×2 (13:11→21:20)
[2024-04-18] MEDS: INSULIN (NOVOLOG) ASPART 100 UNITS/ML 10ML VIAL SQ ONE (13:11)
[2024-04-18] MEDS: DEXTROSE 50%-WATER - 25 GM/50 ML VIAL IVPUSH ONE (13:12)
[2024-04-18] MEDS: FUROSEMIDE 40 MG/4 ML INJECTABLE VIAL IVPUSH ONE (15:00)
[2024-04-18] MEDS: SODIUM ZIRCONIUM CYCLOSILICATE (LOKELMA) 5 GM PACKET PO SCH (15:00)
[2024-04-18 15:03] LABS: EPI CELLS 4 /uL (0-25.1); HYALINE CASTS 2 /uL (0-3.1); URINE APPEARANCE CLEAR; URINE BACTERIA 43 /uL (0-1359); URINE BILIRUBIN NEGATIVE (NEGATIVE); URINE COLOR YELLOW; URINE GLUCOSE (UA) NEGATIVE (NEGATIVE); URINE KETONE TRACE (NEGATIVE); URINE LEUK ESTERASE NEGATIVE (NEGATIVE); URINE NITRITE NEGATIVE (NEGATIVE); URINE PROTEIN 3+ (NEGATIVE); URINE RBC 9 /uL (0-23.9); URINE UROBILINOGEN 0.2 mg/dL (0.2-1.0); URINE WBC 12 /uL (0-25.8)
[2024-04-18 15:18] LABS: URINE BARBITURATES NEGATIVE (NEGATIVE); URINE BENZODIAZEPINES NEGATIVE (NEGATIVE)
[2024-04-18 15:19] LABS: COCAINE, UR NEGATIVE (NEGATIVE); OPIATES, URI NEGATIVE (NEGATIVE)
[2024-04-18 15:21] LABS: URINE AMPHETAMINES NEGATIVE (NEGATIVE)
[2024-04-18 15:32] LABS: METHADONE, UR NEGATIVE (NEGATIVE); PHENCYCLIDINE,URINE NEGATIVE (NEGATIVE)
[2024-04-18] MEDS: CEFTRIAXONE 1 G/50 ML PREMIX 50 ML IVPB SCH (21:20)
[2024-04-18] MEDS: AZITHROMYCIN 250 MG TABLET PO SCH (21:37)
[2024-04-19 08:21] LABS: HEMATOCRIT 41.6 % (35.4-49); HEMOGLOBIN 13.4 GM/dL (11.7-16.9); MCH 29.1 pg (25.7-33.7); MCHC 32.2 g/dl (32.0-35.9); MEAN CELL VOLUME 90.3 fl (80-96); MEAN PLT VOLUME 9.3 fl (7.5-11.1); PLATELET COUNT 211 10^3/uL (134-434); RBC 4.61 M/mm3 (4.00-5.60); RDW 14.9 % (11.9-15.9); WHITE BLOOD COUNT 10.7 K/mm3 (4.0-10.0)
[2024-04-19 08:46] LABS: POTASSIUM 4.8 mmol/L (3.5-5.1)
[2024-04-19 08:50] LABS: BLOOD UREA NITROGEN 28.8 mg/dL (7-18)
[2024-04-19 08:51] LABS: CALCIUM 9.1 mg/dL (8.5-10.1)
[2024-04-19 08:52] LABS: MAGNESIUM 2.8 mg/dL (1.8-2.4)
[2024-04-19 08:55] LABS: CREATININE 0.9 mg/dL (0.55-1.3)
[2024-04-19 08:56] LABS: BILIRUBIN,TOTAL 0.3 mg/dL (0.2-1); TOT PROT 7.4 g/dl (6.4-8.2)
[2024-04-19 09:06] LABS: ANISOCYTOSIS 0; MACROCYTOSIS 0
[2024-04-19] MEDS: FUROSEMIDE 40 MG TABLET (FP) PO SCH (13:44)
[2024-04-19] MEDS: amLODIPine BESYLATE 2.5 MG TABLET (FP) PO SCH (23:12)
[2024-04-20] MEDS: ENOXAPARIN NA (PORCINE) 120 MG/0.8 ML DISP.SYRIN SQ SCH (02:05)
[2024-04-20 08:13] LABS: HEMATOCRIT 41.3 % (35.4-49); HEMOGLOBIN 13.5 GM/dL (11.7-16.9); MCH 29.4 pg (25.7-33.7); MCHC 32.7 g/dl (32.0-35.9); MEAN PLT VOLUME 9.6 fl (7.5-11.1); PLATELET COUNT 215 10^3/uL (134-434); RBC 4.59 M/mm3 (4.00-5.60); WHITE BLOOD COUNT 8.5 K/mm3 (4.0-10.0)
[2024-04-20 08:31] LABS: POTASSIUM 4.4 mmol/L (3.5-5.1)
[2024-04-20 08:34] LABS: BLOOD UREA NITROGEN 28.3 mg/dL (7-18); CALCIUM 8.9 mg/dL (8.5-10.1)
[2024-04-20 08:35] LABS: ALBUMIN 3.8 g/dl (3.4-5.0); MAGNESIUM 2.6 mg/dL (1.8-2.4)
[2024-04-20 08:38] LABS: CREATININE 0.9 mg/dL (0.55-1.3)
[2024-04-20 08:39] LABS: BILIRUBIN,TOTAL 0.3 mg/dL (0.2-1); TOT PROT 7.1 g/dl (6.4-8.2)
[2024-04-20 09:36] LABS: ANISOCYTOSIS 0; MACROCYTOSIS 0
[2024-04-20] MEDS: LISINOPRIL 5 MG TABLET PO SCH (16:12)
[2024-04-21 08:45] LABS: BASO % 0.1 % (0-2.0); EOS % 0.1 % (0-4.5); HEMATOCRIT 45.8 % (35.4-49); HEMOGLOBIN 14.5 GM/dL (11.7-16.9); MCH 28.6 pg (25.7-33.7); MCHC 31.6 g/dl (32.0-35.9); MEAN CELL VOLUME 90.3 fl (80-96); MEAN PLT VOLUME 9.4 fl (7.5-11.1); MONO % 4.4 % (3.8-10.2); NEUT % 90.4 % (42.8-82.8); PLATELET COUNT 240 10^3/uL (134-434); RBC 5.07 M/mm3 (4.00-5.60); RDW 14.7 % (11.9-15.9); WHITE BLOOD COUNT 7.5 K/mm3 (4.0-10.0)
[2024-04-21 08:50] LABS: POTASSIUM 4.3 mmol/L (3.5-5.1)
[2024-04-21 08:52] LABS: CALCIUM 9.2 mg/dL (8.5-10.1)
[2024-04-21 08:53] LABS: ALBUMIN 3.8 g/dl (3.4-5.0); BLOOD UREA NITROGEN 28.3 mg/dL (7-18); MAGNESIUM 2.8 mg/dL (1.8-2.4)
[2024-04-21 08:56] LABS: CREATININE 0.9 mg/dL (0.55-1.3)
[2024-04-21 08:57] LABS: BILIRUBIN,TOTAL 0.4 mg/dL (0.2-1); TOT PROT 7.5 g/dl (6.4-8.2)
[2024-04-21] MEDS: FUROSEMIDE 20 MG TABLET (FP) PO SCH (10:02)
[2024-04-21] MEDS: LISINOPRIL 5 MG TABLET PO ONE (15:37)
[2024-04-21] MEDS: amLODIPine BESYLATE 2.5 MG TABLET (FP) PO ONE (15:38)
[2024-04-21] MEDS: ATORVASTATIN CA 80 MG TABLET (FP) PO SCH (21:34)
[2024-04-22] MEDS: amLODIPine BESYLATE 5 MG TABLET (FP) PO SCH (09:49)
[2024-04-22] MEDS: ENOXAPARIN NA (PORCINE) 60 MG/0.6 ML DISP.SYRIN SQ SCH (09:49)
[2024-04-22] MEDS: methylPREDNISolone NA SUCC 40 MG/1 ML VIAL IVPUSH SCH (09:49)
[2024-04-22 10:19] LABS: BASO % 0.3 % (0-2.0); EOS % 0.4 % (0-4.5); HEMATOCRIT 45.5 % (35.4-49); HEMOGLOBIN 14.9 GM/dL (11.7-16.9); LYMPH % 20.4 % (8-40); MCHC 32.8 g/dl (32.0-35.9); MEAN CELL VOLUME 88.4 fl (80-96); MEAN PLT VOLUME 8.8 fl (7.5-11.1); NEUT % 70.9 % (42.8-82.8); PLATELET COUNT 228 10^3/uL (134-434); RBC 5.15 M/mm3 (4.00-5.60); RDW 14.7 % (11.9-15.9); WHITE BLOOD COUNT 8.1 K/mm3 (4.0-10.0)
[2024-04-22 10:39] LABS: POTASSIUM 3.8 mmol/L (3.5-5.1)
[2024-04-22 10:42] LABS: ALBUMIN 3.5 g/dl (3.4-5.0); BLOOD UREA NITROGEN 32.5 mg/dL (7-18); MAGNESIUM 2.5 mg/dL (1.8-2.4)
[2024-04-22 10:46] LABS: BILIRUBIN,TOTAL 0.4 mg/dL (0.2-1); TOT PROT 6.7 g/dl (6.4-8.2)
[2024-04-22] MEDS: LISINOPRIL 10 MG TABLET PO SCH (12:39)
[2024-04-22] MEDS: metoPROLOL SUCCINATE 25 MG TAB.SR.24H (FP) PO SCH (14:49)
[2024-04-23] MEDS: ACETAMINOPHEN 1000 MG/100 ML BAG IVPB ONE (02:44)
[2024-04-23 08:45] LABS: BASO % 0.2 % (0-2.0); EOS % 1.3 % (0-4.5); HEMATOCRIT 45.5 % (35.4-49); HEMOGLOBIN 14.7 GM/dL (11.7-16.9); LYMPH % 17.9 % (8-40); MCH 28.7 pg (25.7-33.7); MCHC 32.3 g/dl (32.0-35.9); MEAN CELL VOLUME 88.6 fl (80-96); MEAN PLT VOLUME 9.2 fl (7.5-11.1); MONO % 7.8 % (3.8-10.2); NEUT % 72.8 % (42.8-82.8); PLATELET COUNT 218 10^3/uL (134-434); RBC 5.13 M/mm3 (4.00-5.60); RDW 14.2 % (11.9-15.9); WHITE BLOOD COUNT 6.3 K/mm3 (4.0-10.0)
[2024-04-23 09:09] LABS: POTASSIUM 4.1 mmol/L (3.5-5.1)
[2024-04-23 09:23] LABS: ALBUMIN 3.4 g/dl (3.4-5.0); BLOOD UREA NITROGEN 25.4 mg/dL (7-18); CALCIUM 9.2 mg/dL (8.5-10.1); MAGNESIUM 2.4 mg/dL (1.8-2.4)
[2024-04-23 09:26] LABS: BILIRUBIN,TOTAL 0.7 mg/dL (0.2-1); CREATININE 0.8 mg/dL (0.55-1.3); TOT PROT 6.7 g/dl (6.4-8.2)
[2024-04-23] MEDS: predniSONE 5 MG TABLET (UD) PO SCH (10:04)
[2024-04-23 13:48] VITALS: BMI 45.6
[2024-04-23] MEDS: predniSONE 10 MG TABLET (UD) PO ONE (17:05)
[2024-04-23] MEDS: ACETAMINOPHEN 325 MG TABLET (FP) PO ONE (18:14)
[2024-04-24 07:31] VITALS: TEMP 97.5
[2024-04-24 08:13] LABS: BASO % 0.1 % (0-2.0); EOS % 0.9 % (0-4.5); HEMATOCRIT 43.9 % (35.4-49); LYMPH % 11.9 % (8-40); MCH 29.9 pg (25.7-33.7); MCHC 34.1 g/dl (32.0-35.9); MEAN CELL VOLUME 87.8 fl (80-96); MEAN PLT VOLUME 9.3 fl (7.5-11.1); MONO % 4.9 % (3.8-10.2); NEUT % 82.2 % (42.8-82.8); PLATELET COUNT 207 10^3/uL (134-434); RBC 5.01 M/mm3 (4.00-5.60); RDW 14.7 % (11.9-15.9); WHITE BLOOD COUNT 8.1 K/mm3 (4.0-10.0)
[2024-04-24 08:35] LABS: POTASSIUM 4.1 mmol/L (3.5-5.1)
[2024-04-24 08:38] LABS: CALCIUM 9.2 mg/dL (8.5-10.1)
[2024-04-24 08:39] LABS: ALBUMIN 3.6 g/dl (3.4-5.0); BLOOD UREA NITROGEN 24.9 mg/dL (7-18); MAGNESIUM 2.3 mg/dL (1.8-2.4)
[2024-04-24 08:42] LABS: CREATININE 0.9 mg/dL (0.55-1.3)
[2024-04-24 08:44] VITALS: BP 128/86; PULSE 70; RESP 18
[2024-04-24 08:44] LABS: BILIRUBIN,TOTAL 0.6 mg/dL (0.2-1); TOT PROT 6.9 g/dl (6.4-8.2)
== END 2024-04-24 10:20 | disposition home or self-care (01) ==
LOC: JER 19:12 → JERBED 21:54 → J4S 04-18 00:45
PROVIDERS: ADMIT Internal Medicine; ATTEND Internal Medicine
PROC: 3E033NZ Introduction of Analgesics, Hypnotics, Sedatives into Peripheral Vein, Percutaneous Approach (ICD-10-PCS; principal; 2024-04-17)
PROC: 3E0F7GC Introduction of Other Therapeutic Substance into Respiratory Tract, Via Natural or Artificial Opening (ICD-10-PCS; 2024-04-17)
PROC: 3E03329 Introduction of Other Anti-infective into Peripheral Vein, Percutaneous Approach (ICD-10-PCS; 2024-04-17)
PROC: 3E0337Z Introduction of Electrolytic and Water Balance Substance into Peripheral Vein, Percutaneous Approach (ICD-10-PCS; 2024-04-17)
PROC: 3E023GC Introduction of Other Therapeutic Substance into Muscle, Percutaneous Approach (ICD-10-PCS; 2024-04-17)
PROC: 3E033GC Introduction of Other Therapeutic Substance into Peripheral Vein, Percutaneous Approach (ICD-10-PCS; 2024-04-17)
PROC: 3E013VG Introduction of Insulin into Subcutaneous Tissue, Percutaneous Approach (ICD-10-PCS; 2024-04-17)
DX: J96.22 Acute and chronic respiratory failure with hypercapnia (principal); J44.1 Chronic obstructive pulmonary disease with (acute) exacerbation; I50.30 Unspecified diastolic (congestive) heart failure; J20.9 Acute bronchitis, unspecified; I11.0 Hypertensive heart disease with heart failure; E78.5 Hyperlipidemia, unspecified; Z91.199 Patient's noncompliance with other medical treatment and regimen due to unspecified reason; G47.33 Obstructive sleep apnea (adult) (pediatric); Z99.81 Dependence on supplemental oxygen; E66.01 Morbid (severe) obesity due to excess calories; M62.81 Muscle weakness (generalized); Z59.71 Insufficient health insurance coverage; Z87.891 Personal history of nicotine dependence
CPT/HCPCS: 0241U-QW; 36415; 36600; 71045-TC-FY; 71250-TC; 71275-TC; 76700-TC; 80048; 80053; 80061; 80307; 81003; 82570; 82803; 82962; 83036; 83605; 83735; 83880; 84100; 84156; 84443; 84484; 85025; 85379; 85610; 85651; 85730; 86140; 87040; 87070; 87086; 87205; 87899; 93005; 93010; 94640; 94660; 97116-GP; 97162-GP; 99285-25; G0378; J0131; J1644

== ENCOUNTER 2024-08-04 19:34 | Observation (INO) | payer OTHER ==
[2024-08-04 19:46] VITALS: BMI 40.4
[2024-08-04] MEDS ORDERED: ACETAMINOPHEN INJECTION 100 ML ONE (20:18)
[2024-08-04] MEDS ORDERED: METOCLOPRAMIDE HCL INJECTION 10 MG/2 ML VIAL ONE (20:18)
[2024-08-04 20:22] LABS: ABSOLUTE IMMATURE GRANULOCYTES 0.03 x10^3/uL (0.0-0.031); BASOPHILS # 0.03 x10^3/uL (0.01-0.08); EOSINOPHIL % 1.9 % (0.8-7.0); EOSINOPHILS # 0.12 x10^3/uL (0.04-0.54); HEMATOCRIT 40.7 % (40.1-51.0); HEMOGLOBIN 13.5 g/dL (13.7-17.5); MCHC 33.2 g/dl (32.3-36.5); MEAN CELL VOLUME 86.8 fl (79.0-92.2); MONOCYTE # 0.49 x10^3/uL (0.30-0.82); MONOCYTE % 7.9 % (5.3-12.2); PLATELET COUNT 241 x10^3/uL (163-337); RDW 12.7 % (12.1-15.9)
[2024-08-04] MEDS: SODIUM CHLORIDE 0.9% 500 ML INFUS.BAG IV ONE (20:28)
[2024-08-04] MEDS: ACETAMINOPHEN 1000 MG/100 ML BAG IVPB ONE (20:29)
[2024-08-04] MEDS: METOCLOPRAMIDE HCL INJECTION 10 MG/2 ML VIAL IVPB ONE (20:29)
[2024-08-04 21:21] LABS: ALBUMIN 3.8 g/dl (3.4-5.0); BLOOD UREA NITROGEN 24.1 mg/dL (7-18); CALCIUM 9.5 mg/dL (8.5-10.1); MAGNESIUM 1.9 mg/dL (1.8-2.4)
[2024-08-04 21:23] LABS: BILIRUBIN,TOTAL 0.3 mg/dL (0.2-1); CREATININE 0.9 mg/dL (0.55-1.3); TOT PROT 6.9 g/dl (6.4-8.2)
[2024-08-04 21:29] LABS: N-TERMINAL BNP 22.7 pg/ml (5-125)
[2024-08-04] MEDS ORDERED: MECLIZINE HCL 25 MG TABLET (FP) ONE (23:20)
[2024-08-04] MEDS: MECLIZINE HCL 25 MG TABLET (FP) PO ONE (23:23)
[2024-08-05] MEDS ORDERED: KETOROLAC TROMETHAMINE 15 MG/ML VIAL IVPUSH PRN (01:42)
[2024-08-05] MEDS ORDERED: METOCLOPRAMIDE HCL INJECTION 10 MG/2 ML VIAL IVPUSH PRN (01:43)
[2024-08-05] MEDS: KETOROLAC TROMETHAMINE 15 MG/ML VIAL IVPUSH ONE (02:06)
[2024-08-05] MEDS: METOCLOPRAMIDE HCL INJECTION 10 MG/2 ML VIAL IVPUSH ONE (02:06)
[2024-08-05] MEDS ORDERED: TAMSULOSIN HCL 0.4 MG CAP ONE (08:15)
[2024-08-05] MEDS: TAMSULOSIN HCL 0.4 MG CAP PO SCH (08:33)
[2024-08-05] MEDS: LACTATED RINGERS SOLUTION 1,000 ML/1,000 ML INFUS.BAG IV SCH (08:33)
[2024-08-05] MEDS ORDERED: FUROSEMIDE 20 MG TABLET (FP) PO SCH (10:00)
[2024-08-05] MEDS ORDERED: ENOXAPARIN NA (PORCINE) 40 MG/0.4 ML DISP.SYRIN SQ ONE (10:25)
[2024-08-05] MEDS ORDERED: LISINOPRIL 10 MG TABLET ONE ×2 (10:25→10:26)
[2024-08-05] MEDS ORDERED: PANTOPRAZOLE 20 MG TABLET PO ONE (10:25)
[2024-08-05] MEDS ORDERED: amLODIPine BESYLATE 5 MG TABLET (FP) ONE (10:25)
[2024-08-05] MEDS ORDERED: metoPROLOL SUCCINATE 25 MG TAB.SR.24H (FP) PO ONE (10:25)
[2024-08-05] MEDS ORDERED: LORATADINE 10 MG TABLET ONE (10:25)
[2024-08-05] MEDS: PANTOPRAZOLE 20 MG TABLET PO SCH (10:44)
[2024-08-05] MEDS: LISINOPRIL 10 MG TABLET PO SCH (10:44)
[2024-08-05] MEDS: amLODIPine BESYLATE 5 MG TABLET (FP) PO SCH (10:44)
[2024-08-05] MEDS: LORATADINE 10 MG TABLET PO SCH (10:44)
[2024-08-05] MEDS: ENOXAPARIN NA (PORCINE) 40 MG/0.4 ML DISP.SYRIN SQ SCH (10:44)
[2024-08-05] MEDS: EMPAGLIFLOZIN (JARDIANCE) 10 MG TABLET PO SCH (10:44)
[2024-08-05] MEDS: metoPROLOL SUCCINATE 25 MG TAB.SR.24H (FP) PO SCH (10:45)
[2024-08-05] MEDS: BUDESONIDE/FORMETEROL FUMARATE 80/4.5 mcg INHALER IH SCH (11:46)
[2024-08-05] MEDS: FLUTICASONE PROP 0.05% 16 GM NASAL SPRAY NS SCH (11:46)
[2024-08-05] MEDS ORDERED: ASPIRIN 81 MG CHEWABLE TABLETS ONE (13:38)
[2024-08-05] MEDS: ASPIRIN 81 MG CHEWABLE TABLETS PO ONE (13:42)
[2024-08-05] MEDS: ATORVASTATIN CA 40 MG TABLET (FP) PO SCH (22:21)
[2024-08-05 23:53] VITALS: RESP 18
[2024-08-06] MEDS: FLUTICASONE PROP 0.05% 16 GM NASAL SPRAY NS SCH ×2 (05:10→05:40)
[2024-08-06] MEDS: FUROSEMIDE 20 MG TABLET (FP) PO SCH (09:19)
[2024-08-06] MEDS: MECLIZINE HCL 12.5 MG TABLET PO SCH (09:19)
[2024-08-06 10:45] VITALS: BP 135/88; PULSE 89; TEMP 997.7
== END 2024-08-06 11:41 | disposition home or self-care (01) ==
LOC: JER 19:34 → JERBED 23:46 → J4W 08-05 23:16
PROVIDERS: ADMIT Internal Medicine; ATTEND Nurse Practitioner Family
PROC: 3E033NZ Introduction of Analgesics, Hypnotics, Sedatives into Peripheral Vein, Percutaneous Approach (ICD-10-PCS; principal; 2024-08-04)
PROC: 3E023GC Introduction of Other Therapeutic Substance into Muscle, Percutaneous Approach (ICD-10-PCS; 2024-08-04)
PROC: 3E0333Z Introduction of Anti-inflammatory into Peripheral Vein, Percutaneous Approach (ICD-10-PCS; 2024-08-04)
PROC: 3E0337Z Introduction of Electrolytic and Water Balance Substance into Peripheral Vein, Percutaneous Approach (ICD-10-PCS; 2024-08-04)
PROC: 3E033GC Introduction of Other Therapeutic Substance into Peripheral Vein, Percutaneous Approach (ICD-10-PCS; 2024-08-04)
DX: R51.9 Headache, unspecified (principal); R42 Dizziness and giddiness; R09.89 Other specified symptoms and signs involving the circulatory and respiratory systems; I50.30 Unspecified diastolic (congestive) heart failure; R07.9 Chest pain, unspecified; I11.0 Hypertensive heart disease with heart failure; J44.9 Chronic obstructive pulmonary disease, unspecified; E78.5 Hyperlipidemia, unspecified; E66.2 Morbid (severe) obesity with alveolar hypoventilation; E88.810 Metabolic syndrome; F19.10 Other psychoactive substance abuse, uncomplicated; Z87.891 Personal history of nicotine dependence; F10.10 Alcohol abuse, uncomplicated; N40.0 Benign prostatic hyperplasia without lower urinary tract symptoms; K70.0 Alcoholic fatty liver; Z91.199 Patient's noncompliance with other medical treatment and regimen due to unspecified reason
CPT/HCPCS: 0241U-QW; 36415; 70450-TC; 70551-TC; 71045-TC-FY; 80053; 82962; 83735; 83880; 84484; 85025; 85379; 85651; 86140; 93005; 93010; 96361; 96372; 96374; 96375; 96376; 99285-25; G0378; J0131